=== PATIENT | male | born 1935 | race Caucasian/White ===

== ENCOUNTER 2019-08-04 21:05 | Inpatient (IN) | payer MEDICARE, OTHER, SELFPAY ==
--- NOTE | 2019-08-04 | XR_ITS ---
WS: [id number] LUMBAR SPINE 3 VIEWS HISTORY: 83 years old Male with FALL AP, cone-down lateral, and lateral views lumbar spine comparison 09/19/2018 FINDINGS: Interval L1 superior endplate compression fracture approximately 40% height loss. L2 retrolisthesis o f L3 5.9 mm unchanged. L4-L5 disc space narrowing unchanged. L2-L3 through L5-S1 facet joint arthrosi s reidentified. Right convex lumbar spine curvature reidentified. SI and hip joints anatomic. Diffuse bone demineralization. Aortoiliac artery atherosclerosis without definite aneurysm seen. XR/XR lumbar spine 2-3V* [id number] IMPRESSION: 1. Interval age indeterminant L1 superior endplate compression fracture approxi mately 40% height loss. Correlate clinically. 2. Unchanged L2 degenerative retrolisthesis L3. 3. Continued L4-L3 through L5-S1 facet joint arthrosis and lumbar dextro convex curvature.
[2019-08-04 21:11] VITALS: BP 142/80; PULSE 86; RESP 20; TEMP 37.1; O2SAT 95; BMI 28.3
--- NOTE | 2019-08-04 21:19 | ED_ITS ---
Entered by Kayli Valadez, acting as scribe for Valentin Hollis DO HPI - SOB/Dyspnea General: Chief Complaint: Shortness of Breath/Dyspnea Stated Complaint: SOB Time Seen by Provider: 08/04/19 21:20 Source: patient Mode of arrival: wheelchair Limitations: no limitations History of Present Illness: HPI Narrative: 83 yo m came to the er pov for shortness of breath. Onset was today. Pt states that he has been having trouble breathing today. Pt states that he has sleep apnea. Pt states that he has not had a cough or fever but pt also states that when he lays flat in the bed the breathing becomes more difficult. Pts family states that pt fell last week onto tile and has bruising along his back. MD elicited complaint: shortness of breath Pertinent past history: other (sleep apnea) Timing: constant Severity: mild Exacerbating factors: lying flat Relieving factors: nothing Associated symptoms: Reports orthopnea; Deny abdominal pain, chest pain, cough, dizziness, fever(s), nausea, palpitations or vomiting Related Data: Home oxygen amount: none Review of Systems General: Reports: other (negatve unless marked) Const: Denies: fever Eyes: Denies: change in vision ENMT: Denies: painful swallowing, swelling of lips/tongue or facial/sinus pain Card: Reports: shortness of breath on exertion and shortness of breath when lying down; Denies: chest pain, palpitations, irregular heart rhythm, edema or swelling of feet/ankles Resp: Reports: non-productive cough GI: Denies: abdominal pain, nausea or vomiting : Denies: difficulty urinating Skin/Breast: Denies: rash, itching or redness Neuro: Denies: headache, dizziness, vertigo or confusion Psych: Denies: anxiety PFSH ED PFSH: Statuses (acute, chronic, etc) shown below reflect problem list status as previously entered and may not be historically accurate Medical History (Updated 08/05/19 @ 01:37 by Brandyn Beatty MD) Atrial fibrillation (Acute) CAD (coronary artery disease) (Acute) Frequent falls (Acute) GERD (gastroesophageal reflux disease) (Acute) 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) Hyperlipidemia (Acute) Hypertension (Acute) Ischemic cardiomyopathy (Acute) Peripheral neuropathy (Acute) Surgical History (Updated 08/05/19 @ 01:23 by Brandyn Beatty MD) History of carotid endarterectomy (Acute) Hx of four vessel coronary artery bypass graft (Acute) Hx of heart artery stent (Acute) Family History (Updated 08/05/19 @ 01:23 by Brandyn Beatty MD) Other CAD (coronary artery disease) Social History (Updated 08/05/19 @ 01:24 by Brandyn Beatty MD) Smoking and tobacco status: never smoked Alcohol intake: never Substance/Drug Use: never Physical Exam Const: GENERAL APPEARANCE: well developed ORIENTATION/CONSCIOUSNESS: Yes oriented to person and Yes oriented to place; not oriented to time HENMT: COMMON NORMALS: normocephalic, external ears normal and external nose normal HEAD & SCALP: normocephalic; no scalp tenderness FACE & SINUS: normal facial exam NOSE: external nose normal EXTERNAL EAR: Yes external ears normal THROAT: posterior oropharynx normal Eye: COMMON NORMALS: PERRL, EOMs intact bilaterally and conjunctivae normal EYELID: eyelids normal CONJUNCTIVA: Yes conjunctivae normal PUPIL: Yes PERRL Chest: CHEST: Yes tenderness Resp: COMMON NORMALS: negative for clear to auscultation bilaterally EFFORT & INSPECTION: No tachypneic, No respiratory distress, No retractions, No uses accessory muscles and No tracheal deviation AUSCULTATION: not clear to auscultation bilaterally, no rhonchi, no wheezes and lung sounds not diminished Cardio: COMMON NORMALS: regular rate; negative for regular rhythm RATE: regular rate RHYTHM: abnormal rhythm HEART SOUNDS: no murmurs PERIPHERAL PULSES: radial pulses present GI: INSPECTION: Yes abdominal distension AUSCULTATION: No hyperactive bowel sounds and No hypoactive bowel sounds PALPATION: No guarding and No rigid PERCUSSION: no dullness to percussion and no tympanic to percussion Back/Pelvis: GENERAL BACK: Yes other (3 bruises on the upper thoracic) Neuro: SENSORIUM/ORIENTATION: Yes oriented to person, Yes oriented to place and No oriented to time Course ED course: 83-year-old gentleman presents with significant shortness of breath. He had a fall last week. I do not see definite rib fractures or pneumothorax. He does have an enlarged heart, and pleural effusion on the left. His BNP is elevated. He has an abnormal rhythm, consisting of atrial fibrillation underlying, with a ventricular rhythm likely idioventricular that appears periodically. He never complained of chest pain. He does complain significant shortness of breath. He has a history of CABG surgery. He will be admitted Consultations: Consultation #1: letitia Vital Signs: Vital signs: Vital Signs Temperature 97.6 F 08/05/19 02:00 Pulse Rate 93 08/05/19 02:21 Respiratory Rate 17 08/05/19 02:21 Blood Pressure 103/86 08/05/19 02:21 Pulse Oximetry 95 08/05/19 02:21 MDM - SOB/Dyspnea Lab Data: Labs: Lab Results 08/04/19 08/04/19 08/04/19 Range/Units 21:48 21:48 21:48 WBC 6.3 (4.0-10.0) 10^3/ uL RBC 4.54 (4.1-5.3) 10^6/u L Hgb 13.3 (11.7-16.6) g/dL Hct 41.1 L (42.0-52.0) % MCV 90.5 (80-94) fL MCH 29.3 (28.0-34.0) pg MCHC 32.4 (30.0-36.0) g/dL RDW 14.2 (12.1-15.1) % Plt Count 170 (130-400) 10^3/c mm MPV 9.8 (7.4-10.4) fL Neut % (Auto) 68.2 % Lymph % (Auto) 16.6 % [place] % (Auto) 14.1 % Eos % (Auto) 0.6 % Baso % (Auto) 0.3 % Neut # (Auto) 4.3 (1.8-7.7) 10^3/u L Lymph # (Auto) 1.0 (0.8-4.8) 10^3/u L [place] # (Auto) 0.9 (0.2-0.9) 10^3/u L Eos # (Auto) 0.0 (0.0-0.8) 10^3/u L Baso # (Auto) 0.0 (0.0-0.1) 10^3/u L Nucleated RBC % (a uto) 0 % Nucleated RBCs # 0.0 /100WBC Specimen Type Sample Site ABG pH (7.35-7.45) ABG pCO2 (35-45) mmHg ABG pO2 (80.0-100.0) mmH g ABG HCO3 (22-26) mmol/L ABG Base Excess (-2.0-2.0) mmol/ L Singh Test Hematocrit (42-52) % Hgb O2 Saturation (95-100) % Carboxyhemoglobin (0.4-20.1) %THgb Methemoglobin (0.4-1.5) % Total Hemoglobin (14-18) g/dL O2 Delivery Device FiO2 % Internal Medicine Hospitalist ID Sodium 137 (136-145) mmol/L Potassium 4.0 (3.5-5.1) mmol/L Chloride 96 L (98-107) mmol/L Carbon Dioxide 28 (22-29) mmol/L Anion Gap 17.0 (5-19) BUN 38 H (8-23) mg/dL Creatinine 1.3 H (0.7-1.2) mg/dL Glucose 114 (65-115) mg/dL Lactate (0.5-2.2) mmol/L Calcium 10.2 (8.5-10.5) mg/dL Magnesium (1.7-2.3) mg/dL Total Bilirubin 1.9 H (0.15-1.2) mg/dL AST 21 (0-40) U/L ALT 9 (0-41) U/L Alkaline Phosphata se 178 H (40-130) IU/L Troponin T Baselin e 83 H (0-15) ng/mL Troponin T 120 Min reba (0-15) ng/mL Delta Troponin T (0-10) ABS# NT-Pro-B Natriuret Pep 6584 H (0-450) pg/mL Total Protein 7.4 (6.6-8.7) g/dL Albumin 3.7 (3.5-5.2) g/dL Globulin 3.7 (1.3-4.6) g/dL Influenza Type A A g (Negative) POC Influenza B Ag (Negative) 08/04/19 08/04/19 08/04/19 Range/Units 21:48 21:48 22:09 WBC (4.0-10.0) 10^3/ uL RBC (4.1-5.3) 10^6/u L Hgb (11.7-16.6) g/dL Hct (42.0-52.0) % MCV (80-94) fL MCH (28.0-34.0) pg MCHC (30.0-36.0) g/dL RDW (12.1-15.1) % Plt Count (130-400) 10^3/c mm MPV (7.4-10.4) fL Neut % (Auto) % Lymph % (Auto) % [place] % (Auto) % Eos % (Auto) % Baso % (Auto) % Neut # (Auto) (1.8-7.7) 10^3/u L Lymph # (Auto) (0.8-4.8) 10^3/u L [place] # (Auto) (0.2-0.9) 10^3/u L Eos # (Auto) (0.0-0.8) 10^3/u L Baso # (Auto) (0.0-0.1) 10^3/u L Nucleated RBC % (a uto) % Nucleated RBCs # /100WBC Specimen Type Sample Site ABG pH (7.35-7.45) ABG pCO2 (35-45) mmHg ABG pO2 (80.0-100.0) mmH g ABG HCO3 (22-26) mmol/L ABG Base Excess (-2.0-2.0) mmol/ L Singh Test Hematocrit (42-52) % Hgb O2 Saturation (95-100) % Carboxyhemoglobin (0.4-20.1) %THgb Methemoglobin (0.4-1.5) % Total Hemoglobin (14-18) g/dL O2 Delivery Device FiO2 % Internal Medicine Hospitalist ID Sodium (136-145) mmol/L Potassium (3.5-5.1) mmol/L Chloride (98-107) mmol/L Carbon Dioxide (22-29) mmol/L Anion Gap (5-19) BUN (8-23) mg/dL Creatinine (0.7-1.2) mg/dL Glucose (65-115) mg/dL Lactate 1.5 (0.5-2.2) mmol/L Calcium (8.5-10.5) mg/dL Magnesium 1.9 (1.7-2.3) mg/dL Total Bilirubin (0.15-1.2) mg/dL AST (0-40) U/L ALT (0-41) U/L Alkaline Phosphata se (40-130) IU/L Troponin T Baselin e (0-15) ng/mL Troponin T 120 Min reba (0-15) ng/mL Delta Troponin T (0-10) ABS# NT-Pro-B Natriuret Pep (0-450) pg/mL Total Protein (6.6-8.7) g/dL Albumin (3.5-5.2) g/dL Globulin (1.3-4.6) g/dL Influenza Type A A g Negative (Negative) POC Influenza B Ag Negative (Negative) 08/04/19 08/04/19 Range/Units 22:10 23:48 WBC (4.0-10.0) 10^3/ uL RBC (4.1-5.3) 10^6/u L Hgb (11.7-16.6) g/dL Hct (42.0-52.0) % MCV (80-94) fL MCH (28.0-34.0) pg MCHC (30.0-36.0) g/dL RDW (12.1-15.1) % Plt Count (130-400) 10^3/c mm MPV (7.4-10.4) fL Neut % (Auto) % Lymph % (Auto) % [place] % (Auto) % Eos % (Auto) % Baso % (Auto) % Neut # (Auto) (1.8-7.7) 10^3/u L Lymph # (Auto) (0.8-4.8) 10^3/u L [place] # (Auto) (0.2-0.9) 10^3/u L Eos # (Auto) (0.0-0.8) 10^3/u L Baso # (Auto) (0.0-0.1) 10^3/u L Nucleated RBC % (a uto) % Nucleated RBCs # /100WBC Specimen Type Arterial Sample Site Radial, left ABG pH 7.49 H (7.35-7.45) ABG pCO2 33.6 L (35-45) mmHg ABG pO2 80.3 (80.0-100.0) mmH g ABG HCO3 25.4 (22-26) mmol/L ABG Base Excess 2.5 H (-2.0-2.0) mmol/ L Singh Test Pos Hematocrit 44.5 (42-52) % Hgb O2 Saturation 94.6 L (95-100) % Carboxyhemoglobin 0.9 (0.4-20.1) %THgb Methemoglobin 0.6 (0.4-1.5) % Total Hemoglobin 14.5 (14-18) g/dL O2 Delivery Device None FiO2 21.0 % Internal Medicine Hospitalist ID [email or web address] Sodium (136-145) mmol/L Potassium (3.5-5.1) mmol/L Chloride (98-107) mmol/L Carbon Dioxide (22-29) mmol/L Anion Gap (5-19) BUN (8-23) mg/dL Creatinine (0.7-1.2) mg/dL Glucose (65-115) mg/dL Lactate (0.5-2.2) mmol/L Calcium (8.5-10.5) mg/dL Magnesium (1.7-2.3) mg/dL Total Bilirubin (0.15-1.2) mg/dL AST (0-40) U/L ALT (0-41) U/L Alkaline Phosphata se (40-130) IU/L Troponin T Baselin e (0-15) ng/mL Troponin T 120 Min reba 78.23 H (0-15) ng/mL Delta Troponin T -4.77 L (0-10) ABS# NT-Pro-B Natriuret Pep (0-450) pg/mL Total Protein (6.6-8.7) g/dL Albumin (3.5-5.2) g/dL Globulin (1.3-4.6) g/dL Influenza Type A A g (Negative) POC Influenza B Ag (Negative) Discharge Plan Discharge Admit Provider: Brandyn Beatty Discharge Date/Time: 08/05/19 01:52 Coding Level of Care Code ED Clean Room Assembler for Chg Germania The documentation recorded by the Rory lazaro Stephanie Lyn, accurately reflects the service I personally performed and the decisions made by Bunny rojas Jeremy John, DO Aug 04, 2019 21:05
[2019-08-04 21:24] VITALS: BP 128/74; PULSE 93; RESP 18; O2SAT 97
--- NOTE | 2019-08-04 21:25 | PC.NURSE ---
PATIENT STATES HE HAS BEEN HAVING TROUBLE CATCHING HIS BREATH ALL DAY. PATIENT STATES THAT HE USUALLY WEARS A CPAP TO SLEEP BUT HAS NOT BEEN USING IT LATELY. PATIENT STATES HE HAD PNEUMONIA LAST YEAR.
--- NOTE | 2019-08-04 21:39 | XR_ITS ---
WS: [id number] ONE VIEW CHEST HISTORY: 83 years old Male with sob AP upright chest comparison 08/11/2018 FINDINGS: Interval mild left costophrenic angle blunting. No pneumothorax or right costophrenic angle blunting. Lungs are otherwise clear. Cardiomegaly probably unchanged, accounting for lordotic techni que. Pulmonary vascular markings unremarkable. Thoracic aorta atherosclerosis and CABG changes reiden tified. No subdiaphragmatic free air. Osseous structures intact. XR/XR chest 1V portable [id number] IMPRESSION: Interval small left pleural effusion. Superimposed left basilar atelectasis or pneumonia not excluded. Suggest short-term follow-up PA and lateral chest in 4- 6 weeks, or sooner if clinically indicated.
[2019-08-04 22:02] LABS: Basophils % 0.3 %; Eosinophils % 0.6 %; Hematocrit 41.1 % (42.0-52.0); Hemoglobin 13.3 g/dL (11.7-16.6); Lymphocytes % 16.6 %; Mean Corpuscular HGB Conc 32.4 g/dL (30.0-36.0); Mean Corpuscular Hemoglobin 29.3 pg (28.0-34.0); Mean Corpuscular Volume 90.5 fL (80-94); Mean Platelet Volume 9.8 fL (7.4-10.4); Monocytes # 0.9 10^3/uL (0.2-0.9); Monocytes % 14.1 %; Neutrophils # 4.3 10^3/uL (1.8-7.7); Neutrophils % 68.2 %; Nucleated Red Blood Cells % 0 %; Platelet Count 170 10^3/cmm (130-400); Red Blood Count 4.54 10^6/uL (4.1-5.3); Red Cell Distribution Width 14.2 % (12.1-15.1); White Blood Count 6.3 10^3/uL (4.0-10.0)
[2019-08-04 22:07] VITALS: BP 118/70; PULSE 101; RESP 16; O2SAT 92
[2019-08-04 22:12] VITALS: PULSE 88; RESP 16; O2SAT 93
[2019-08-04] MEDS: ipratropium-albuterol 3 mL Neb INHALATION (22:12)
[2019-08-04 22:22] LABS: ABG PCO2 33.6 mmHg (35-45); ABG PH Result 7.49 (7.35-7.45); Arterial Blood Gas Hematocrit 44.5 % (42-52); Base Excess ABG 2.5 mmol/L (-2.0-2.0); Blood Gas Allen Test Pos; Blood Gas Sample Site Radial, left; Blood Gas Sample Type Arterial; Carboxyhemoglobin 0.9 %THgb (0.4-20.1); HCO3 ABG 25.4 mmol/L (22-26); HGB O2 Sat 94.6 % (95-100); Methemoglobin 0.6 % (0.4-1.5); PO2 ABG 80.3 mmHg (80.0-100.0); Total Hemoglobin 14.5 g/dL (14-18)
[2019-08-04 22:25] LABS: Troponin(5th) Baseline 83 ng/mL (0-15)
[2019-08-04 22:34] LABS: Alanine Aminotransferase 9 U/L (0-41); Albumin Level 3.7 g/dL (3.5-5.2); Alkaline Phosphatase 178 IU/L (40-130); Aspartate Amino Transferase 21 U/L (0-40); Blood Urea Nitrogen 38 mg/dL (8-23); Calcium 10.2 mg/dL (8.5-10.5); Carbon Dioxide 28 mmol/L (22-29); Chloride 96 mmol/L (98-107); Globulin 3.7 g/dL (1.3-4.6); Glucose 114 mg/dL (65-115); NT Pro B Type Natriuretic Pept 6584 pg/mL (0-450); Sodium 137 mmol/L (136-145); Total Bilirubin 1.9 mg/dL (0.15-1.2); Total Protein 7.4 g/dL (6.6-8.7)
[2019-08-04 22:50] LABS: Influenza A by IFA Negative (Negative)
[2019-08-04 22:51] LABS: Influenza B by IFA Negative (Negative)
--- NOTE | 2019-08-04 23:14 | PC.NURSE ---
ED physician at bedside, patient placed on 2L NC
[2019-08-04 23:17] VITALS: BP 115/84; PULSE 95; RESP 17; O2SAT 98
[2019-08-04 23:30] LABS: Magnesium 1.9 mg/dL (1.7-2.3)
[2019-08-04 23:31] LABS: Lactate (Lactic Acid level) 1.5 mmol/L (0.5-2.2)
[2019-08-04] MEDS: FUROsemide 10 mg/mL SDV 10mL 60 MG IVP (23:32)
--- NOTE | 2019-08-04 23:40 | ECG_ITS ---
Measurements Intervals [place] Rate: 89 P: TX: 0 QRS: 116 QRSD: 182 T: -38 QT: 426 QTc: 521 ATRIAL FIBRILLATION RIGHT AXIS DEVIATION [QRS AXIS > 100] INTRAVENTRICULAR CONDUCTION DELAY [130+ ms QRS DURATION] Compared to ECG 08/11/2018 12:34:15 Right-axis deviation now present T-wave abnormality no longer present Possible ischemia no longer present Electronically Signed On 08-04-2019 22:20:05 FAMILY MEDICINE PHYSICIAN by Shay Huff M.D. [email or web address]
[2019-08-05] VITALS (30 sets, daily range): BP systolic 76–140; BP diastolic 38–93; PULSE 60–103; RESP 13–21; TEMP 36.4–37.2; O2SAT 89–98
[2019-08-05 00:20] LABS: Troponin 5 2HR 78.23 ng/mL (0-15)
[2019-08-05 00:22] LABS: Troponin 5 2HR Delta -4.77 ABS# (0-10)
--- NOTE | 2019-08-05 00:48 | CTR_ITS ---
PROCEDURE INFORMATION: Exam: CT Angiography Chest With Contrast Exam date and time: 08/05/2019 1:01 AM Age: 83 years old Clinical indication: Shortness of breath; Prior surgery; Surgery date: 6+ months; Surgery type: Open heart, stents; Additional info: SOB, fall, R/O pe TECHNIQUE: Imaging protocol: Computed tomographic angiography of the chest with intravenous contrast. 3D rendering: MIP and/or 3D reconstructed images were created by the technologist. Total DLP: 655.35 mGy-cm Radiation optimization: All CT scans at this facility use at least one of these dose optimization techniques: automated exposure control; mA and/or kV adjustment per patient size (includes targeted exams where dose is matched to clinical indication); or iterative reconstruction. Contrast material: VISI; Contrast volume: 95 ml; Contrast route: 20G; COMPARISON: CT Chest/Abdomen/Pelvis w IV* 09/18/2014 7:07 PM FINDINGS: Pulmonary arteries: There is no pulmonary embolus. The main pulmonary artery trunk is enlarged measuring 5.2 cm compared to the ascending thoracic aorta which measures 3.1 cm compatible probable pulmonary arterial hypertension. There is decreased opacification of the left lower lobe pulmonary artery branches compared to the right but there is just a gradual diminishing of the enhancement rather than a filling defect joint abrupt cut off such is a pulmonary embolus. This is felt to be due to the phase of the scan in contrast enhancement since most of the contrast is identified in the right heart, superior vena cava and left upper extremity (early in the bolus). Probable right heart failure is noted with reflux of contrast into the hepatic veins and inferior vena cava. Aorta: Unremarkable. No aortic aneurysm. No aortic dissection. Lungs: Nonspecific mild bibasilar consolidation is present, consistent with atelectasis, edema, or pneumonia. Pleural space: There is a moderate size left pleural effusion. There is left basilar compressive atelectasis from the pleural effusion. Heart: Sternotomy wires and mediastinal surgical clips are present, consistent with previous coronary arterial bypass grafting. The heart is enlarged. Mediastinum: A small hiatal hernia is present. Liver: The liver has a nodular contour and there is relative hypertrophy of the caudate lobe, consistent with cirrhosis. Adrenals: Diffuse nodular thickening of both adrenal glands is identified compatible probable hyperplasia. Intraperitoneal space: There is a large amount of ascites. Lymph nodes: Unremarkable. No enlarged lymph nodes. Bones/joints: Osteopenia and moderate degenerative changes in the spine are noted. There is an anterior wedging fracture of L1 that appears new or subacute. No retropulsed bone. No involvement of the pedicles or lamina. No additional acute bony fracture. Soft tissues: Unremarkable. CT/CT angio chest PE protcl [id number] IMPRESSION: 1. There is no pulmonary embolus. Note is made that the suboptimal enhancement of the left lower lobe pulmonary artery branches is compatible with the phase of injection and right heart failure as above. 2. The main pulmonary artery trunk is enlarged measuring 5.2 cm compared to the ascending thoracic aorta which measures 3.1 cm compatible probable pulmonary arterial hypertension. Probable pulmonary arterial hypertension. 3. Nonspecific mild bibasilar consolidation is present, consistent with atelectasis, edema, or pneumonia. There is a left pleural effusion. 4. New or subacute anterior wedging fracture of L1 without retropulsed bone. Radiation Dose CTDIVOL = (mGy): DLP = 655.35 (mGy-cm)
--- NOTE | 2019-08-05 00:52 | PC.NURSE ---
hospitalist in room
--- NOTE | 2019-08-05 00:57 | PC.NURSE ---
patient gowned by nurse
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
--- NOTE | 2019-08-05 01:13 | PC.NURSE ---
patient to CT
[2019-08-05] MEDS: iodixanol 320 mg/mL 100mL Btl IV (01:22)
[2019-08-05] MEDS: morphine 4 mg/mL SDV 1 mL 2 MG IVP (01:43)
--- NOTE | 2019-08-05 02:12 | USCV_ITS ---
Dimitri Alexander Age: 83 Gender: M : 1935 Exam Date: 08/05/2019 12:55 Ordering Phys: Brandyn Beatty MD Technologist: Manisha Red [place]am [place] [facility] [place]: SOB BP: 140 / 55 HR: 82 Rhythm: Atrial fibrillation Technical Quality: Technically difficult study MEASUREMENTS (Male / Female) Normal Values 2D ECHO LV Diastolic Diameter PLAX 5.1 cm 4.2 - 5.9 / 3.9 - 5.3 cm LV Systolic Diameter PLAX 4.6 cm LV Chamber Size 4.7 cm IVS Diastolic Thickness 1.1 cm 0.6 - 1.0 / 0.6 - 0.9 cm IVS Systolic Thickness 1.3 cm LVPW Diastolic Thickness 1.2 cm 0.6 - 1.0 / 0.6 - 0.9 cm LVPW Systolic Thickness 1.3 cm RV Chamber Size 4.1 cm LVOT Diameter 1.9 cm LV Ejection Fraction 2D Teich 20.6 % LA Diameter 5.0 cm LA Width 3.7 cm LA Height 6.0 cm RA Width 3.4 cm RA Height 5.6 cm Aorta at Sinotubular Diameter 2.3 cm M-MODE LV Diastolic Diameter MM 5.4 cm 4.2 - 5.9 / 3.9 - 5.3 cm LV Systolic Diameter MM 5.0 cm LV Ejection Fraction MM Teich 17.7 % IVS Diastolic Thickness MM 1.7 cm 0.6 - 1.0 / 0.6 - 0.9 cm IVS Systolic Thickness MM 1.4 cm LVPW Diastolic Thickness MM 1.7 cm 0.6 - 1.0 / 0.6 - 0.9 cm LVPW Systolic Thickness MM 1.9 cm Aortic Annulus Diameter 3.3 cm LA Ao Ratio MM 1.5 MV E Point Septal Separation 1.7 cm DOPPLER AV Peak Velocity 137.0 cm/s LVOT Peak Velocity 107.0 cm/s AV Area Cont Eq vti 2.2 cm squared AV Area Cont Eq pk 2.3 cm squared MV Area PHT 5.4 cm squared MV E' Velocity 9.0 cm/s Mitral E to MV E' Ratio 16.8 Mitral E to LV E' Lateral Ratio 10.8 Mitral E to LV E' Septal Ratio 38.1 TR Peak Velocity 306.0 cm/s TR Peak Gradient 37.5 mmHg TR Mean Velocity 195.2 cm/s TR Mean Gradient 16.0 mmHg TR Velocity Time Integral 78.9 cm TV Peak E Velocity 86.0 cm/s Right Atrial Pressure 15.0 mmHg Pulmonary Artery Systolic Pressu 52.5 mmHg FINDINGS Left Ventricle Moderately increased left ventricular cavity size. Severely decreased left ventricular systolic function. Global- hypokinesis with regional septal and anterior wall akinesis.left ventricular ejection fraction is estimated at 20 %. In the presence of atrial fibrillation diastolic filling function cannot be assessed accurately however it appeared to be higher filling pressure. Right Ventricle Moderately increased right ventricular size. Moderately decreased right ventricular systolic function. Moderate pulmonary hypertension, RVSP 52.5 mmHg. Right Atrium The right atrium is normal in size. Left Atrium Mildly increased left atrial size. Mitral Valve Moderately thickened mitral valve. No mitral valve stenosis. Mild mitral valve regurgitation. Aortic Valve Moderate aortic valve calcification. No aortic valve stenosis. No aortic valve regurgitation. Tricuspid Valve Severe tricuspid valve regurgitation. Pulmonic Valve Structurally normal pulmonic valve without significant stenosis. There is no pulmonic regurgitation. Pericardium Normal pericardium without effusion. Aorta Normal ascending aorta dimension. CONCLUSIONS 1-Moderately increased left ventricular cavity size. Severely decreased left ventricular systolic function. Global- hypokinesis with regional septal and anterior wall akinesis.left ventricular ejection fraction is estimated at 20 %. In the presence of atrial fibrillation diastolic filling function cannot be assessed accurately however it appeared to be higher filling pressure. 2-Moderately increased right ventricular size. Moderately decreased right ventricular systolic function. Moderate pulmonary hypertension, RVSP 52.5 mmHg. 3-Moderately thickened mitral valve. No mitral valve stenosis. Mild mitral valve regurgitation. 4-Moderate aortic valve calcification. No aortic valve stenosis. No aortic valve regurgitation. 5-Severe tricuspid valve regurgitation. 6-There is no pericardial effusion. 7-Right atrial pressure is around 20 mm of mercury. 8-When compared to the prior echocardiogram dated 08/06/2018 there is severely depressed left ventricular ejection fraction of 20 % now has dropped from moderately depressed 40% in the past. Memory hypertension is worsened from normal 72 mmHg to 52 mmHg now. Shay Huff MD (Electronically Signed) Final Date: 05 August 2019 21:27 S
--- NOTE | 2019-08-05 03:17 | PC.NURSE ---
Addendum entered by Judith Lindsey RN 08/05/19 03:19: Strips placed in chart. Original Note: Patient on telemetry from ED. Noted patient to have what appears to be runs of vtach at times. Patient is asymptomatic aside from shortness of breath. Informed Dr Beatty of telemetry concerns. replied that he is aware of EKG changes. No orders received at this time. Will continue to monitor.
[2019-08-05 05:19] LABS: Basophils % 0.3 %; Eosinophils # 0.1 10^3/uL (0.0-0.8); Eosinophils % 0.8 %; Hemoglobin 14.1 g/dL (11.7-16.6); Lymphocytes # 1.1 10^3/uL (0.8-4.8); Lymphocytes % 16.7 %; Mean Corpuscular HGB Conc 32.8 g/dL (30.0-36.0); Mean Corpuscular Hemoglobin 30.5 pg (28.0-34.0); Mean Corpuscular Volume 93.1 fL (80-94); Mean Platelet Volume 10.3 fL (7.4-10.4); Monocytes % 15.1 %; Neutrophils # 4.4 10^3/uL (1.8-7.7); Neutrophils % 66.6 %; Nucleated Red Blood Cells % 0 %; Platelet Count 181 10^3/cmm (130-400); Red Blood Count 4.62 10^6/uL (4.1-5.3); Red Cell Distribution Width 14.3 % (12.1-15.1); White Blood Count 6.5 10^3/uL (4.0-10.0)
[2019-08-05] MEDS: enoxaparin 40 mg/0.4 mL Syringe SUBCUT (05:21)
[2019-08-05] MEDS: FUROsemide 10 mg/mL SDV 4mL 40 MG IVP ×2 (05:21→16:03)
[2019-08-05] MEDS: morphine 4 mg/mL SDV 1 mL 1 MG IVP (05:22)
[2019-08-05 05:30] LABS: Estmated Average Glucose 174; Hemoglobin A1C 7.7 % (4.0-6.0)
[2019-08-05 05:41] LABS: Alanine Aminotransferase 9 U/L (0-41); Albumin Level 3.6 g/dL (3.5-5.2); Alkaline Phosphatase 177 IU/L (40-130); Anion Gap 20.5 (5-19); Aspartate Amino Transferase 21 U/L (0-40); Blood Urea Nitrogen 36 mg/dL (8-23); Calcium 10.1 mg/dL (8.5-10.5); Carbon Dioxide 26 mmol/L (22-29); Chloride 93 mmol/L (98-107); Glucose 104 mg/dL (65-115); Potassium 3.5 mmol/L (3.5-5.1); Sodium 136 mmol/L (136-145); Total Bilirubin 1.8 mg/dL (0.15-1.2); Total Protein 7.6 g/dL (6.6-8.7)
[2019-08-05 05:42] LABS: Phosphorus 4.1 mg/dL (2.5-4.5)
[2019-08-05 05:44] LABS: Chol HDL Ratio 3.78 mg/dL (1.0-5.00); Cholesterol 87 mg/dL (0-200); HDL Cholesterol 23 mg/dL (60-100); LDL Cholesterol Calculated 43 mg/dL (50-129); LDL HDL Ratio 1.87 RATIO (0.00-3.22); Thyroid Stimulating Hormone 3.02 uIU/mL (0.27-4.20); Triglycerides 105 mg/dL (0-150)
[2019-08-05 07:13] LABS: Glucose Point of Care 111 mg/dL (70-110)
--- NOTE | 2019-08-05 07:43 | PM.PN ---
Subjective Subjective: Interval history: Chart reviewed, patient seen and examined, son at bedside, he is resting in bed though does not seem comfortable, complains of pain around his tailbone secondary to recent fall that he had. Medications: Reviewed: Yes Medication Review Details: Current Medications Generic Name Dose Route Start Last Admin Trade Name Freq PRN Reason Stop Dose Admin Albuterol/Ipratrop ium 3 ml 08/05/19 04:00 08/05/19 04:10 Duoneb INHALATION Not Given Q4H.RESPIRATORY S CH Enoxaparin Sodium 40 mg 08/05/19 02:12 08/05/19 05:21 Lovenox SUBCUT 40 mg Q24H EARL Administration Furosemide 40 mg 08/05/19 02:12 08/05/19 05:21 Lasix IVP 40 mg Q12H EARL Administration Morphine Sulfate 1 mg 08/05/19 04:33 08/05/19 05:22 Morphine IVP 1 mg Q4H PRN Administration SEVERE PAIN Vitals/I&O/Wt Last Vital Signs Temp 97.8 F 08/05/19 07:17 Pulse 65 08/05/19 07:17 Resp 13 08/05/19 07:17 BP 140/55 08/05/19 07:17 Pulse Ox 92 08/05/19 07:17 08/04/19 08/05/19 08/05/19 22:59 06:59 14:59 Intake Total 150 / 150 Output Total 650 / 650 Balance -500 / -500 Weight last 48 hrs Weight 77.111 kg Physical Exam Const: COMMON NORMALS: no apparent distress and oriented x3 GENERAL APPEARANCE: cooperative and frail appearing; not comfortable ORIENTATION/CONSCIOUSNESS: Yes awake HENMT: COMMON NORMALS: normocephalic, head/scalp atraumatic, hearing grossly normal bilaterally and moist oral mucous membranes HEAD & SCALP: normocephalic and atraumatic Eye: COMMON NORMALS: PERRL, EOMs intact bilaterally and conjunctivae normal CONJUNCTIVA: Yes conjunctivae normal PUPIL: Yes PERRL Neck/C-Spine: COMMON NORMALS: full ROM GENERAL: Yes normal visual inspection and Yes trachea midline Resp: COMMON NORMALS: normal respiratory effort, no retractions, no use of accessory muscles and clear to auscultation bilaterally EFFORT & INSPECTION: Yes able to speak in complete sentences, Yes symmetric chest movement and No tachypneic AUSCULTATION: clear to auscultation bilaterally Cardio: COMMON NORMALS: regular rate, regular rhythm, S1 normal heart sound, S2 normal heart sound and no murmurs RATE: regular rate RHYTHM: regular rhythm HEART SOUNDS: S1 normal and S2 normal GI: COMMON NORMALS: normal to inspection, nondistended, normoactive bowel sounds, soft to palpation and non-tender PALPATION: Yes soft Back/Pelvis: COMMON NORMALS: thoracic and lumbar spine normal to inspection Extremity: COMMON NORMALS: normal to inspection, full ROM and no clubbing, cyanosis or edema; negative for no pedal edema Neuro: COMMON NORMALS: oriented x3, moves all extremities, no focal motor deficits and no sensory deficits noted Psych: COMMON NORMALS: mental status grossly normal, thought process normal, cooperative, affect normal and speech normal SPEECH: Yes normal speech THOUGHT PROCESS: normal thought process Skin: COMMON NORMALS: no rashes or lesions noted, no jaundice, no petechiae and no mottling GENERAL SKIN EXAM: no rashes or lesions noted Data : 08/05/19 04:10 08/05/19 04:10 Micro: Microbiology 08/04/19 21:52 Blood Culture - Preliminary Blood SPECIMEN COLLECTED 08/04/19 21:48 Blood Culture - Preliminary Blood SPECIMEN COLLECTED A&P Assessment and plan (1) Acute respiratory failure with hypoxia: -secondary to acute combined systolic and diastolic CHF exacerbation as evidenced by SOB, LE edema, elevated BNP (6584) -last Echo done in 2014 with EF=40%, G1DD, noted RWMA; repeat Echo ordered -CXR-small L pleural effusion, CTA negative for PE, showing evidence of L pleural effusion, possible pulmonary HTN -supplemental oxygen as needed; monitor respiratory status. Not oxygen dependent at baseline -continue IV diuresis with Bumex, PO metolazone; received IV Lasix in ED -telemetry monitoring -daily weights, monitor Is & Os -monitor lytes and renal function with diuresis -cardiac diabetic diet as tolerated -VSS: continue to monitor -ABG noted, no hypoxia Status: Acute Code(s): J96.01 - Acute respiratory failure with hypoxia (2) Frequent falls: -recurrent falls with most recent fall about 1 week ago -has hx of Nayeli Toure? syndrome, peripheral neuropathy -Follow-up L-spine x-ray; evidence of new or subacute wedging fracture of L1 on CTA -Pain control as needed, strict fall precautions -PT/OT evaluations -ambulates with walker, WC Status: Acute Code(s): R29.6 - Repeated falls Additional A&P Information -hx of atrial fibrillation; on AC with full dose ASA, no further anticoagulation due to fall risk; HR controlled -HTN -NIDDM type II; A1c-7.7; Accuchecks, ISS, hypoglycemia precautions -hx of CAD s/p stenting, CABG with redo in 1996 -hx of ischemic cardiomyopathy; f/u with Dr. Refugio Gracia carotid stenosis s/p CEA with angioplasty -Hyperlipidemia -continue meds as ordered -GI ppx with PPI -DVT ppx not needed as on full dose ASA -Dispo: home -Code status: LIMITED, no CPR or intubation Attestations Medical Necessity Statement*: Patient requires hospitalization for continued IV diuresis as part of management of acute CHF exacerbation. Time Spent in Patient Care: Greater than 35 minutes (>than 50% of time spent in counselling and/or direct pt care on unit). Coding Level of Care Code Acute Manager [employer] for [employer] Exam Problem Focused Diagnoses Acute respiratory failure with hypoxia J96.01 Frequent falls R29.6
[2019-08-05] MEDS: ipratropium-albuterol 3 mL Neb INHALATION ×3 (08:35→15:04)
[2019-08-05] MEDS: losartan 50 mg Tablet PO ×2 (09:15→18:10)
[2019-08-05] MEDS: aspirin 325 mg Tablet PO (09:31)
[2019-08-05] MEDS: carvedilol 6.25 mg Tablet PO ×2 (09:33→18:09)
[2019-08-05] MEDS: duloxetine 20 mg Capsule PO ×2 (09:34→18:09)
[2019-08-05] MEDS: cyanocobalamin 1,000 mcg Tablet 500 MCG PO (09:34)
[2019-08-05] MEDS: ferrous sulfate EC 325 mg Tablet PO (09:35)
[2019-08-05] MEDS: pantoprazole DR 40 mg Tablet PO (09:36)
[2019-08-05] MEDS: pregabalin 75 mg Capsule PO ×2 (09:36→18:09)
[2019-08-05] MEDS: metOLazone 5 MG Tablet PO (09:37)
--- NOTE | 2019-08-05 09:47 | PC.CHAP ---
Pastoral Care Encounter/Spiritual Assessment Type of Contact [] Declined tailor women's garment alteration visit [] Patient/Family/Request visit [] Outpatient visit [] Follow-up visit [] Physician referral [] Code/Alert [X] Routine visit [] Staff referral [] Actively dying [] Patient sleeping [] Family support [] [] Out of room [] Palliative care [] [] Receiving care in room [] Pre-surgical visit [] Trauma [] Long length of stay [] ICU visit [] Other: Relational/Emotional Strength [] Patient feels connected with others/family/visitors/staff [] Distress [] Loneliness/isolation [] Abandonment Spirituality of Patient [] Person of Kathleen [] Attends Hinduism of their Kathleen [] Believes in Prayer [] Reads Bible or Islam materials [] There are Spiritual issues to be addressed Meat Cutting Teacher Interventions [] Prayer [X] Active listening [X] Non-anxious presence [] Spiritual/emotional support [] Crisis/trauma care [] Spiritual counseling [] Bereavement support [] Provided bereavement packet [] Provided Bible/devotional materials [] Provided toy/stuffed animal, coloring book to patient or family member [] Provided Communion [] Anointing/[place] [] Salvation [] Completed spiritual assessment [] Other: Impact on Illness or Injury [] Angry [] Fearful [] Anxious [] Often cries [] Exhaustion [] Unable to work [] Unable to attend episcopalian [] Unable to walk/stand [] Unable to read [] Unable to drive [] Unable to eat/drink [] Unable to sleep [] Unable to be with family [] Patient intubated [] Other: Summary Son present Time spent with patient
[2019-08-05] MEDS: atorvastatin 40 mg Tablet 10 MG PO (09:55)
[2019-08-05] MEDS: bumetanide 0.25 mg/mL SDV 10 mL 1 MG IV (09:56)
[2019-08-05 11:34] LABS: Glucose Point of Care 147 mg/dL (70-110)
[2019-08-05 16:00] LABS: Glucose Point of Care 100 mg/dL (70-110)
[2019-08-05 20:52] LABS: ABG PCO2 49.3 mmHg (35-45); ABG PH Result 7.41 (7.35-7.45); Alveolar-Arterial Oxygen Gradi 19.6 mmHg (5-10); Arterial Blood Gas Hematocrit 39.6 % (42-52); Blood Gas Allen Test Pos; Blood Gas Sample Site Radial, right; Blood Gas Sample Type Arterial; Carboxyhemoglobin 0.7 %THgb (0.4-20.1); HCO3 ABG 30.8 mmol/L (22-26); Ionized Calcium Level - ABG 1.2 mmol/L (1.1-1.4); Methemoglobin 0.4 % (0.4-1.5); Oxygen Device NC; Oxygen Saturation ABG 93.1; Potassium Level - ABG 3.4 mmol/L (3.5-5.0); Total Hemoglobin 12.9 g/dL (14-18)
--- NOTE | 2019-08-05 20:54 | XRR_ITS ---
PROCEDURE INFORMATION: Exam: XR Chest, 1 View Exam date and time: 08/05/2019 8:57 PM Age: 83 years old Clinical indication: Dyspnea; Prior surgery; Surgery date: 6+ months; Additional info: Change in condition TECHNIQUE: Imaging protocol: XR of the chest Views: 1 view. COMPARISON: CR XR chest 1V portable [id number] 08/04/2019 9:56 PM FINDINGS: Lungs: Poor inspiratory effort with some crowding of pulmonary markings and possible accentuation of the apparent heart size. Pleural space: Stable [id number] left pleural fluid collection. Heart/Mediastinum: Stable CABG procedure. Bones/joints: Unremarkable. XR/XR chest 1V portable [id number] IMPRESSION: Stable [id number] left pleural fluid collection.
--- NOTE | 2019-08-05 21:01 | P.CONIM_ITS ---
Providers/Reason For Consult Consulting Physican/Specialty*: Cardiology Reason for Consult*: Hypotension Respiratory failure Attending Physician: Jazmin Johnson MD Primary Care Provider: Lee Chávez DO History of Present Illness History of Present Illness Dimitri Alexander is a 83 year old male Past medical history significant for ischemic cardiomyopathy with moderately depressed ejection fraction,History of chronic atrial fibrillation,Obesity, history of Coronary artery bypass surgery, obesity, systolic heart failure presented with worsening of shortness of breath PND orthopnea and dry cough. He was ruled out for pulmonary embolism and is getting treated for heart failure exacerbation. His BNP was and 6000. Today initially he felt better however telemetry was consistent with aberrant conduction runs of atrial fibrillation with nonsustained short VT's as well. Evening shift nurse found him to be discoherent Upon which his blood pressure was checked He was hypotensive with systolic blood pressure in 70s. He was given 500 LR after his blood pressure improved to 101 systolic by manual. ABG was consistent with respiratory Acidosis. He was moved to unit.Today echocardiogram was consistent with severely depressed LV function and moderate to severe one hypertension. He has significant abdominal distention more consistent with ascites. I saw the patient again in the unit. His family is by bedside. Patient is DNR/DNI and would like to do on medical treatment and comfort measure. Review of Systems General: Reports: other (negatve unless marked) Const: Denies: fever, chills, fatigue or malaise Eyes: Denies: change in vision or blurry vision ENMT: Denies: painful swallowing, swelling of lips/tongue, nasal congestion or facial/sinus pain Card: Reports: shortness of breath on exertion, shortness of breath when lying down and bluish discoloration of hands/feet; Denies: chest pain, palpitations, irregular heart rhythm, edema, swelling of feet/ankles, syncope or pre-syncope Resp: Reports: shortness of breath and non-productive cough; Denies: productive cough or wheezing GI: Denies: abdominal pain, nausea, vomiting, vomiting blood, diarrhea, constipation, blood in stool or black tarry stool : Denies: flank pain, difficulty urinating, painful urination or urinary frequency Musc: Denies: neck pain or back pain Skin/Breast: Denies: rash, itching or redness Neuro: Denies: headache, dizziness, vertigo or confusion Psych: Denies: anxiety or depression Endo: Denies: excessive urination or excessive thirst Meds/Allergies Home Medications and Allergies Home Medications Medication Instructions Recorded Confirmed Type aspirin 325 mg PO DAILY 08/05/19 08/05/19 History atorvastatin 20 mg PO DAILY 08/05/19 08/05/19 History carvedilol 12.5 mg PO DAILY 08/05/19 08/05/19 History clopidogrel 75 mg PO DAILY 08/05/19 08/05/19 History cyclobenzaprine 10 mg PO TID 08/05/19 08/05/19 History duloxetine 20 mg PO BID 08/05/19 08/05/19 History furosemide 40 mg PO BID 08/05/19 08/05/19 History glipizide 5 mg PO DAILY 08/05/19 08/05/19 History hydrocodone-acetaminophen 1 tab PO Q6H PRN 08/05/19 08/05/19 History loratadine 10 mg PO DAILY 08/05/19 08/05/19 History metaxalone 800 mg PO QID 08/05/19 08/05/19 History metolazone 2.5 mg PO DAILY 08/05/19 08/05/19 History omeprazole 20 mg PO DAILY 08/05/19 08/05/19 History pregabalin [Lyrica] 75 mg PO BID 08/05/19 08/05/19 History Allergies Allergy/AdvReac Type Severity Reaction Status Date / Time testosterone Allergy blisters Verified 07/31/19 19:04 Current Medications Current Medications Generic Name Dose Route Start Last Admin Trade Name Freq PRN Reason Stop Dose Admin Albuterol/Ipratropium 3 ml 08/05/19 04:00 08/05/19 15:04 Duoneb INHALATION 3 ml Q4H.RESPIRATORY EARL Administration Aspirin 325 mg 08/05/19 09:00 08/05/19 09:31 Aspirin PO 325 mg DAILY EARL Administration Atorvastatin Calcium 10 mg 08/05/19 09:00 08/05/19 09:55 Lipitor PO 10 mg DAILY EARL Administration Bumetanide 1 mg 08/05/19 09:00 08/05/19 09:56 Bumex IV 1 mg Q12H EARL Administration Carvedilol 6.25 mg 08/05/19 09:00 08/05/19 18:09 Coreg PO 6.25 mg BID EARL Administration Cyanocobalamin 500 mcg 08/05/19 09:00 08/05/19 09:34 Vitamin B-12 PO 500 mcg DAILY EARL Administration Enoxaparin Sodium 40 mg 08/05/19 02:12 08/05/19 05:21 Lovenox SUBCUT 40 mg Q24H EARL Administration Ferrous Sulfate 325 mg 08/05/19 09:00 08/05/19 09:35 Ferrous Sulfate PO 325 mg DAILY EARL Administration Furosemide 40 mg 08/05/19 02:12 08/05/19 16:03 Lasix IVP 40 mg Q12H EARL Administration Insulin Aspart 0 unit 08/05/19 08:00 08/05/19 18:14 Novolog SUBCUT 4 unit TIDWM EARL Administration Protocol Losartan Potassium 50 mg 08/05/19 08:00 08/05/19 18:10 Cozaar PO 50 mg BIDWM EARL Administration Metolazone 5 mg 08/05/19 09:00 08/05/19 09:37 Zaroxolyn PO 5 mg DAILY EARL Administration Morphine Sulfate 1 mg 08/05/19 04:33 08/05/19 05:22 Morphine IVP 1 mg Q4H PRN Administration SEVERE PAIN Pantoprazole Sodium 40 mg 08/05/19 09:00 08/05/19 09:36 Protonix PO 40 mg DAILY EARL Administration Additional Medication Information Current Medications Generic Name Dose Route Start Last Admin Trade Name Freq PRN Reason Stop Dose Admin Albuterol/Ipratropium 3 ml 08/05/19 04:00 08/05/19 04:10 Duoneb INHALATION Not Given Q4H.RESPIRATORY EARL Enoxaparin Sodium 40 mg 08/05/19 02:12 08/05/19 05:21 Lovenox SUBCUT 40 mg Q24H EARL Administration Furosemide 40 mg 08/05/19 02:12 08/05/19 05:21 Lasix IVP 40 mg Q12H EARL Administration Morphine Sulfate 1 mg 08/05/19 04:33 08/05/19 05:22 Morphine IVP 1 mg Q4H PRN Administration SEVERE PAIN PFSH Acute PFSH: Statuses (acute, chronic, etc) shown below reflect problem list status as previously entered and may not be historically accurate Medical History (Updated 08/06/19 @ 18:57 by Shay Huff MD) Abdominal aortic aneurysm (Acute) Atrial fibrillation (Acute) CAD (coronary artery disease) (Acute) Frequent falls (Acute) GERD (gastroesophageal reflux disease) (Acute) 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) Hyperlipidemia (Acute) Hypertension (Acute) Ischemic cardiomyopathy (Acute) Peripheral neuropathy (Acute) Pulmonary hypertension (Acute) Surgical History History of carotid endarterectomy (Acute) Hx of four vessel coronary artery bypass graft (Acute) Hx of heart artery stent (Acute) Family History Other CAD (coronary artery disease) Social History Smoking and tobacco status: never smoked Alcohol intake: never Substance/Drug Use: never Vitals/I&O/Wt Last Vital Signs Temp 97.8 F 08/05/19 15:17 Pulse 60 08/05/19 15:17 Resp 19 H 08/05/19 15:17 BP 101/58 08/05/19 18:10 Pulse Ox 96 08/05/19 15:17 08/05/19 08/05/19 08/05/19 06:59 14:59 22:59 Intake Total 150 / 150 360 / 360 240 / 600 Output Total 650 / 650 650 / 650 350 / 1000 Balance -500 / -500 -290 / -290 -110 / -400 Weight last 48 hrs Weight 170 lb Physical Exam 2 Narrative: EXAM NARRATIVE: GENERAL: Patient is mildly distressed but oriented. HEENT: No cyanosis. No icterus. No pallor. HEART: Irregularly irregular S1 and S2. No murmur, rub or gallop. LUNGS: Right mild inspiratory crackles ABDOMEN: Moderately distended positive bowel sounds with shifting dullness CENTRAL NERVOUS SYSTEM: Grossly nonfocal. EXTREMITIES: Lower extremities without edema bilaterally. Data Micro: Micro: Microbiology 08/04/19 21:52 Blood Culture - Pr eliminary Blood SPECIMEN [facility] 08/04/19 21:48 Blood Culture - Pr eliminary Blood SPECIMEN [facility] A&P Assessment and plan (1) Acute respiratory failure with hypoxia: Most likely secondary to heart failure and worsening of pulmonary hypertension. Patient was diuresed after which he became compensated but drop his blood pressure for which some IV fluid was given which improved his blood pressure. At this point we will hold diuretics. Patient has distended abdominal girth most likely ascites. It is also pushing his lungs and making him short of breath. Status: Acute Code(s): J96.01 - Acute respiratory failure with hypoxia (2) Pulmonary hypertension: Worsening of pulmonary hypertension which is one of the major cause for respiratory failure. Once blood pressure improves we may will add sildenafil. For now continue oxygen. Status: Acute Code(s): I27.20 - Pulmonary hypertension, unspecified (3) Atrial fibrillation: Rate controlled. Continue medicine. Hold carvedilol for blood pressure issues Status: Acute Qualifiers: Atrial fibrillation type: other persistent Qualified Code(s): I48.19 - Other persistent atrial fibrillation Code(s): I48.91 - Unspecified atrial fibrillation (4) Ischemic cardiomyopathy: Patient has severely depressed LV function by recent echo. Ejection fraction has dropped from moderately depressed 40% to 20% now. He Has history of coronary artery bypass surgery For many years ago. He is DNR/DNI would not like to pursue any intervention and not that is recommended at the moment. We will continue to manage him medically.Abnormal cardiac markers are most likely type II and due to pulmonary hypertension and Congestive heart failure. Status: Acute Code(s): I25.5 - Ischemic cardiomyopathy (5) Abdominal aortic aneurysm: History of abdominal aneurysm. We will recheck with abdominal ultrasound in the morning. Status: Acute Code(s): I71.4 - Abdominal aortic aneurysm, without rupture (6) Hypotension: Patient was given IV fluid at this point I will hold IV fluid if required we will use pressors. I will hold carvedilol and diuretics. Status: Acute Code(s): I95.9 - Hypotension, unspecified (7) Abdominal distention: Most likely ascites secondary to pulmonary hypertension right Heart failure and Congestive heart failure. Abdominal ultrasound will be obtained further plan will be advised. Status: Acute Code(s): R14.0 - Abdominal distension (gaseous) Consult Attestations Medical Necessity Statement: Patient requires continuation hospitalization ICU for above defined problem Coding Level of Care Code New Pt Acute Import Coordination And Production Head for [facility] Fwd Patient Type New History Detailed Exam Detailed Medical Decision Making High Complexity Diagnoses Acute respiratory failure with hypoxia J96.01 Pulmonary hypertension I27.20 Atrial fibrillation I48.19 Atrial fibrillation type: other persistent Ischemic cardiomyopathy I25.5 Abdominal aortic aneurysm I71.4 Hypotension I95.9 Abdominal distention R14.0
[2019-08-05] MEDS: lactated ringers 1,000 ML 999 ML IV (21:22)
[2019-08-05 21:28] LABS: Basophils % 0.7 %; Eosinophils # 0.2 10^3/uL (0.0-0.8); Eosinophils % 3.6 %; Hematocrit 39.2 % (42.0-52.0); Hemoglobin 12.5 g/dL (11.7-16.6); Lymphocytes # 0.9 10^3/uL (0.8-4.8); Lymphocytes % 14.3 %; Mean Corpuscular HGB Conc 31.9 g/dL (30.0-36.0); Mean Corpuscular Hemoglobin 29.7 pg (28.0-34.0); Mean Corpuscular Volume 93.1 fL (80-94); Mean Platelet Volume 9.7 fL (7.4-10.4); Monocytes % 16.6 %; Neutrophils % 64.5 %; Nucleated Red Blood Cells % 0 %; Platelet Count 157 10^3/cmm (130-400); Red Blood Count 4.21 10^6/uL (4.1-5.3); Red Cell Distribution Width 14.3 % (12.1-15.1); White Blood Count 6.1 10^3/uL (4.0-10.0)
[2019-08-05 21:30] LABS: Glucose Point of Care 135 mg/dL (70-110)
[2019-08-05 21:50] LABS: Alanine Aminotransferase 8 U/L (0-41); Albumin Level 3.1 g/dL (3.5-5.2); Alkaline Phosphatase 170 IU/L (40-130); Anion Gap 16.3 (5-19); Aspartate Amino Transferase 19 U/L (0-40); Blood Urea Nitrogen 39 mg/dL (8-23); Calcium 9.9 mg/dL (8.5-10.5); Carbon Dioxide 29 mmol/L (22-29); Chloride 95 mmol/L (98-107); Globulin 3.7 g/dL (1.3-4.6); Glucose 123 mg/dL (65-115); Magnesium 1.9 mg/dL (1.7-2.3); Phosphorus 4.5 mg/dL (2.5-4.5); Potassium 3.3 mmol/L (3.5-5.1); Sodium 137 mmol/L (136-145); Total Bilirubin 1.5 mg/dL (0.15-1.2); Total Protein 6.8 g/dL (6.6-8.7)
[2019-08-05 21:52] LABS: Lactic Acid level (Lactate) 2.5 mmol/L (0.5-2.2)
[2019-08-05 22:57] LABS: Troponin T (5th) Once 111 ng/mL (0-15)
[2019-08-06] VITALS (33 sets, daily range): BP systolic 77–124; BP diastolic 41–80; PULSE 65–112; RESP 15–24; TEMP 35.9–36.6; O2SAT 87–100
--- NOTE | 2019-08-06 00:37 | PC.NURSE ---
Late Entry: 08/05/2019 at approximately ORACLE DATABASE DEVELOPER was doing vitals and I seen on the telemetry patient's Blood pressure was 76/38. I went to patient's room to assess and obtain a manual blood pressure. Patient was lethargic, knew he was in the hospital, the year was 2001, and couldn't say the president. We called the rapid response at 2040, crash cart was brought down, manual blood pressure was attempted and systolic was 70, FIBER OPTIC ASSEMBLER responded Adriel RT, Dr. Beatty, [place], ICU, [facility],halfway house counselor and ER. Blood sugar was 135, verbal orders for lactated ringers was obtained from Dr. Beatty for a 500ml bolus, CBC, CMP, Lactic acid, Magnesium, Troponin, Phosphorous, and a chest x-ray 1V were the orders I obtained verbally. After the fluid bolus finished patients blood pressure was 110/62 manually. Report was called to ANA M Davalos in ICU and patient and all his belongings were transferred to ICU-3. Patient was awake and answering questions. Family was updated and escorted with patient.
--- NOTE | 2019-08-06 00:53 | PM.MISC ---
Miscellaneous Note Purpose of Documentation: Rapid response was called due to episodes of alteration of mentation, and hypotensive episode blood pressure 70s over 60s. When I arrived patient was alert oriented x3, had no complaints of shortness of breath, no chest pain, telemetry sinus rhythm. Patient received 500 cc LR bolus, blood pressure improved to 100 over 60s, EKG showed normal sinus rhythm, chest x-ray showed a right pleural effusion, patient did complain of some abdominal distention. ABG showed hypoxia, PO2 of 70, PCO2 49.3 doing well on 2 L, no complaints of shortness of breath. Patient's troponin was 111, increase from baseline troponin of 83, lactic acid was 2.5, creatinine was 1.7, potassium 3.3 -Chest x-ray shows left pleural effusion -Patiently likely has hypotension from overdiuresis -Is improving after LR bolus -Lactic acidosis likely hypovolemic -Troponin elevation likely type II NSTEMI related to supply demand ischemia Plan -We will move the patient to the intensive care unit -Currently no active chest pain, trend troponins, therapeutic Lovenox, aspirin, statin -Given patient's depressed ejection fraction of 20%, will avoid fluids, can use pressors to maintain map greater than 65 -Hold diuretics, hold beta-mariam, hold blood pressure medications -Continue aspirin, statin, initiated therapeutic Lovenox, monitor telemetry's, serial EKGs -Abdominal ultrasound ordered to evaluate for ascites, patient does have liver cirrhosis on CT imaging, 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
--- NOTE | 2019-08-06 01:05 | ECG_ITS ---
Measurements Intervals [place] Rate: 66 P: AL: 0 QRS: 0 QRSD: 142 T: 200 QT: 460 QTc: 482 ATRIAL FIBRILLATION WITH ABERRANT CONDUCTION OR VENTRICULAR PREMATURE COMPLEXES LEFT BUNDLE BRANCH BLOCK [120+ ms QRS DURATION, 80+ ms Q/S IN V1/V2, 85+ ms R IN I I/aVL/V5/V6] WARNING: DATA QUALITY MAY AFFECT INTERPRETATION INTERPRETATION BASED ON A DEFAULT AGE OF 40 YEARS Compared to ECG 08/04/2019 22:16:53 Ventricular premature complex(es) now present Aberrant conduction of supraventricular beat(s) now present Left bundle-branch block now present Right-axis deviation no longer present Intraventricular conduction delay no longer present Electronically Signed On 08-06-2019 22:22:06 EXHIBIT CARPENTER by Shay Huff M.D. [email or web address]
[2019-08-06] MEDS: potassium chloride premix 40 MEQ/100 ML PREMIX 25 MEQ IV (01:31)
[2019-08-06] MEDS: enoxaparin 80 mg/0.8 mL Syringe SUBCUT ×2 (01:31→16:13)
[2019-08-06 01:54] LABS: Troponin(5th) Baseline 114 ng/mL (0-15)
--- NOTE | 2019-08-06 02:57 | ECG_ITS ---
Measurements Intervals [place] Rate: 80 P: AR: 0 QRS: 60 QRSD: 131 T: 254 QT: 410 QTc: 475 ATRIAL FIBRILLATION WITH ABERRANT CONDUCTION OR VENTRICULAR PREMATURE COMPLEXES INTRAVENTRICULAR CONDUCTION DELAY [130+ ms QRS DURATION] Compared to ECG 08/04/2019 22:16:53 Ventricular premature complex(es) now present Aberrant conduction of supraventricular beat(s) now present Right-axis deviation no longer present Electronically Signed On 08-06-2019 22:25:18 LIMEHOUSE WORKER by Shay Huff M.D. [email or web address]
[2019-08-06 03:45] LABS: Anion Gap 19.4 (5-19); Blood Urea Nitrogen 38 mg/dL (8-23); Calcium 9.7 mg/dL (8.5-10.5); Carbon Dioxide 28 mmol/L (22-29); Chloride 94 mmol/L (98-107); Glucose 147 mg/dL (65-115); Lactic Acid level (Lactate) 2.4 mmol/L (0.5-2.2); Osmolality Calculated 286 mOsm/kg (285-295); Potassium 3.4 mmol/L (3.5-5.1); Sodium 138 mmol/L (136-145)
[2019-08-06] MEDS: ipratropium-albuterol 3 mL Neb INHALATION ×6 (03:51→23:18)
--- NOTE | 2019-08-06 06:57 | ECG_ITS ---
Measurements Intervals [place] Rate: 73 P: NM: 0 QRS: 12 QRSD: 134 T: 193 QT: 431 QTc: 477 ATRIAL FIBRILLATION WITH ABERRANT CONDUCTION OR VENTRICULAR PREMATURE COMPLEXES INTRAVENTRICULAR CONDUCTION DELAY [130+ ms QRS DURATION] POSSIBLE SEPTAL MYOCARDIAL INFARCTION [30 ms Q WAVE IN V1/V2], OF INDETERMINATE AGE WARNING: DATA QUALITY MAY AFFECT INTERPRETATION Compared to ECG 08/04/2019 22:16:53 Ventricular premature complex(es) now present Aberrant conduction of supraventricular beat(s) now present Myocardial infarct finding now present Right-axis deviation no longer present Electronically Signed On 08-06-2019 22:25:06 WILDLIFE ENFORCEMENT MAJOR by Shay Huff M.D. [email or web address]
[2019-08-06 08:04] LABS: Troponin 5 6HR Delta -10.4 ng/L (0-12)
[2019-08-06 08:08] LABS: Troponin 5 6HR 103.6 ng/L (0-15)
[2019-08-06] MEDS: atorvastatin 40 mg Tablet PO (09:02)
[2019-08-06] MEDS: losartan 50 mg Tablet PO (09:02)
[2019-08-06] MEDS: ferrous sulfate EC 325 mg Tablet PO (09:02)
[2019-08-06] MEDS: aspirin 325 mg Tablet PO (09:02)
[2019-08-06] MEDS: pantoprazole DR 40 mg Tablet PO (09:02)
[2019-08-06] MEDS: pregabalin 75 mg Capsule PO ×2 (09:02→17:44)
[2019-08-06] MEDS: duloxetine 20 mg Capsule PO ×2 (09:02→17:44)
--- NOTE | 2019-08-06 10:22 | P.PN_ITS ---
Subjective Subjective: Interval history: Rapid response called overnight secondary to hypotension and altered mental status. Patient moved to ICU. Received 500 mL bolus with improved blood pressure. Diuretics and oral antihypertensives held. Reviewed overnight physician documentation. Noted to have moderate ascites on abdominal ultrasound, will request paracentesis. CODE STATUS changed to limited. Patient seen several times throughout the day, initially seen this morning, appears fatigued, short of breath even at rest. Discussed paracentesis which he is agreeable to. He had this done in the afternoon with removal of 4.5 L; fluid analysis requested. His breathing has improved significantly and his abdominal distention is almost completely resolved. Telemetry reviewed continues to show a variety of arrhythmias including V. tach which is not accurate. Medications: Reviewed: Yes Medication Review Details: Current Medications Generic Name Dose Route Start Last Admin Trade Name Freq PRN Reason Stop Dose Admin Albuterol/Ipratrop ium 3 ml 08/05/19 04:00 08/06/19 07:44 Duoneb INHALATION 3 ml Q4H.RESPIRATORY S CH Administration Aspirin 325 mg 08/05/19 09:00 08/06/19 09:02 Aspirin PO 325 mg DAILY EARL Administration Atorvastatin Calci um 40 mg 08/06/19 09:00 08/06/19 09:02 Lipitor PO 40 mg DAILY EARL Administration Bumetanide 1 mg 08/05/19 09:00 08/05/19 22:13 Bumex IV Not Given Q12H EARL Carvedilol 6.25 mg 08/05/19 09:00 08/05/19 18:09 Coreg PO 6.25 mg BID EARL Administration Cyanocobalamin 500 mcg 08/05/19 09:00 08/05/19 09:34 Vitamin B-12 PO 500 mcg DAILY EARL Administration Enoxaparin Sodium 80 mg 08/06/19 01:15 08/06/19 01:31 Lovenox SUBCUT 80 mg Q12H EARL Administration Ferrous Sulfate 325 mg 08/05/19 09:00 08/06/19 09:02 Ferrous Sulfate PO 325 mg DAILY EARL Administration Furosemide 40 mg 08/05/19 02:12 08/05/19 16:03 Lasix IVP 40 mg Q12H EARL Administration Norepinephrine Bit artrate 4 mg 254 mls @ 0 mls/h r 08/05/19 23:00 08/06/19 04:04 / Dextrose IV 1 mcg/min .Q0M EARL 3.8 mls/hr Titration Protocol Per Protocol Insulin Aspart 0 unit 08/05/19 08:00 08/06/19 08:49 Novolog SUBCUT Not Given TIDWM EARL Protocol Losartan Potassium 50 mg 08/05/19 08:00 08/06/19 09:02 Cozaar PO 50 mg BIDWM EARL Administration Metolazone 5 mg 08/05/19 09:00 08/05/19 09:37 Zaroxolyn PO 5 mg DAILY EARL Administration Morphine Sulfate 1 mg 08/05/19 04:33 08/05/19 05:22 Morphine IVP 1 mg Q4H PRN Administration SEVERE PAIN Pantoprazole Sodiu m 40 mg 08/05/19 09:00 08/06/19 09:02 Protonix PO 40 mg DAILY EARL Administration Vitals/I&O/Wt Last Vital Signs Temp 96.6 F L 08/06/19 03:00 Pulse 78 08/06/19 07:47 Resp 16 08/06/19 07:45 BP 121/65 08/06/19 09:02 Pulse Ox 96 08/06/19 07:45 08/05/19 08/06/19 08/06/19 22:59 06:59 14:59 Intake Total 740 / 1100 114.567 / 1214.567 Output Total 350 / 1000 300 / 1300 Balance 390 / 100 -185.433 / -85.433 Weight last 48 hrs Weight 78.97 kg Weight 77.111 kg Physical Exam Const: COMMON NORMALS: no apparent distress and oriented x3 GENERAL APPEARANCE: cooperative and frail appearing; not comfortable ORIENTATION/CONSCIOUSNESS: Yes awake HENMT: COMMON NORMALS: normocephalic, head/scalp atraumatic, hearing grossly normal bilaterally and moist oral mucous membranes HEAD & SCALP: normocephalic and atraumatic Eye: COMMON NORMALS: PERRL, EOMs intact bilaterally and conjunctivae normal CONJUNCTIVA: Yes conjunctivae normal PUPIL: Yes PERRL Neck/C-Spine: COMMON NORMALS: full ROM GENERAL: Yes normal visual inspection and Yes trachea midline Resp: COMMON NORMALS: normal respiratory effort, no retractions, no use of accessory muscles and clear to auscultation bilaterally EFFORT & INSPECTION: Yes able to speak in complete sentences, Yes symmetric chest movement and No tachypneic AUSCULTATION: clear to auscultation bilaterally OTHER: -appears dyspneic; on 3 L NC Cardio: COMMON NORMALS: regular rate, regular rhythm, S1 normal heart sound, S2 normal heart sound and no murmurs RATE: regular rate RHYTHM: regular rhythm HEART SOUNDS: S1 normal and S2 normal GI: COMMON NORMALS: soft to palpation and non-tender INSPECTION: Yes abdominal distension AUSCULTATION: Yes normoactive bowel sounds PALPATION: Yes soft : BLADDER/KIDNEY EXAM: Yes catheter in place Catheter type (Male): urethral Back/Pelvis: COMMON NORMALS: thoracic and lumbar spine normal to inspection Extremity: COMMON NORMALS: normal to inspection, full ROM and no clubbing, cyanosis or edema; negative for no pedal edema Neuro: COMMON NORMALS: oriented x3, moves all extremities, no focal motor deficits and no sensory deficits noted Psych: COMMON NORMALS: mental status grossly normal, thought process normal, cooperative, affect normal and speech normal SPEECH: Yes normal speech THOUGHT PROCESS: normal thought process Skin: COMMON NORMALS: no rashes or lesions noted, no jaundice, no petechiae and no mottling GENERAL SKIN EXAM: no rashes or lesions noted Urinary Catheter Management^: Lanza: Cath Placed During This Visit: yes Urethral Indwelling: Yes Reason for Continuing Indwelling Catheter: Accurate Measurement of Urinary Output in Critically Ill Patients Urinary Catheter Date of Insertion: 08/06/19 Urinary Catheter Time of Insertion: 02:41 Data : 08/05/19 21:21 08/06/19 03:16 Micro: Microbiology 08/04/19 21:52 Blood Culture - Preliminary Blood NEGATIVE TO DATE 08/04/19 21:48 Blood Culture - Preliminary Blood NEGATIVE TO DATE A&P Assessment and plan (1) Acute respiratory failure with hypoxia: -secondary to acute combined systolic and diastolic CHF exacerbation as evidenced by SOB, LE edema, elevated BNP (6584) -last Echo done in 2014 with EF=40%, G1DD, noted RWMA; repeat Echo: EF=20%, global hypokinesis, moderate pulmonary HTN (53), severe TR, mild MR -CXR-small L pleural effusion, CTA negative for PE, showing evidence of L pleural effusion, possible pulmonary HTN -supplemental oxygen as needed; monitor respiratory status. Not oxygen dependent at baseline -diuresis on hold due to hypotension -telemetry monitoring -daily weights, monitor Is & Os -continue to monitor lytes and renal function with diuresis -cardiac diabetic diet as tolerated -VSS: continue to monitor -ABG noted, no hypoxia -reviewed troponins, noted delta of 4 Status: Acute Code(s): J96.01 - Acute respiratory failure with hypoxia (2) Frequent falls: -recurrent falls with most recent fall about 1 week ago -has hx of Nayeli Toure? syndrome, peripheral neuropathy -Follow-up L-spine x-ray; evidence of new or subacute wedging fracture of L1 on CTA -Pain control as needed, strict fall precautions -PT/OT evaluations -ambulates with walker, WC Status: Acute Code(s): R29.6 - Repeated falls Additional A&P Information -hx of atrial fibrillation; on AC with full dose ASA, no further anticoagulation due to fall risk; HR controlled -HTN -NIDDM type II; A1c-7.7; Accuchecks, ISS, hypoglycemia precautions -hx of CAD s/p stenting, CABG with redo in 1996 -hx of ischemic cardiomyopathy; f/u with Dr. Refugio Gracia carotid stenosis s/p CEA with angioplasty -Hyperlipidemia -NSTEMI; likely type II; troponins reviewed, delta of 4. Cardiology consult appreciated; medical management -Moderate pulmonary HTN -Liver cirrhosis with moderate ascites on abdomen US; paracentesis done for therapeutic and diagnostic purposes; removal of 4.5 L with noted symptomatic improvement. F/u fluid analysis -continue meds as ordered -GI ppx with PPI -DVT ppx not needed as on full dose ASA -Dispo: home -Code status: LIMITED, no CPR or intubation -moved to ICU overnight for closer monitoring Attestations Medical Necessity Statement*: Patient requires hospitalization for continued management of NSTEMI, ascites, pulmonary HTN. Time Spent in Patient Care: Greater than 35 minutes (>than 50% of time spent in counselling and/or direct pt care on unit) . Critical Care Time: The high probability of a clinically significant, sudden or life threatening deterioration of the patient's [cardiovascular, respiratory] system(s) required my full and direct attention, intervention and personal management. The critical care time is as shown. This time is in addition to time spent performing any reported procedures but includes the following: [x] Data and vital sign review and interpretation [x] Patient assessment, examination and intervention [x] Documentation [x] Medication orders and management Critical Care Time (min): 25 Coding Level of Care Code Acute Ornamental Metal Worker Helper for Chg Fwd Exam Problem Focused Diagnoses Acute respiratory failure with hypoxia J96.01 Frequent falls R29.6
--- NOTE | 2019-08-06 10:28 | US_ITS ---
WS: [id number] ULTRASOUND-GUIDED THERAPEUTIC PARACENTESIS HISTORY: 83 years old Male with moderate ascites PROCEDURE: Preprocedure ultrasound of the right lower quadrant showed a large amount of ascitic fluid . Informed consent was obtained from patient's daughter, due to patient's altered mental status. Unde r ultrasound guidance, left lower quadrant was evaluated and the skin was marked and subsequently pre pped and draped in a sterile manner. Buffered 1% lidocaine was used to measure the size the skin and soft tissues. A small skin incision was made and a 6 Estonian Nohw-P-ytajewbg catheter was slowly advan sandip to the abdominal wall. Upon loss of resistance and aspiration of ascitic fluid, the catheter was advanced and needle system was simultaneously removed. The catheter was then connected to suction and 4500 cc of cloudy dark yellow ascitic fluid fluid was collected. Sample was delivered to laboratory for further analysis. No immediate apparent postprocedure complication was encountered. US/US paracentesis abd w [id number] IMPRESSION: Ultrasound-guided left lower quadrant paracentesis with collection of 4500 cc o f dark cloudy yellow ascitic fluid. Samples delivered to laboratory for further analysis.
[2019-08-06 11:39] LABS: INR 1.28 (0.8-1.2)
[2019-08-06 11:41] LABS: Glucose Point of Care 109 mg/dL (70-110)
--- NOTE | 2019-08-06 13:44 | PC.OT ---
OTR attempted visit secondary to change in status. In morning, nursing requested therapy wait until the afternoon. Pt. sleeping when OTR attempted visit in afternoon. Treatment by OTR will be attempted tomorrow.
--- NOTE | 2019-08-06 14:01 | PC.CHAP ---
Pastoral Care Encounter/Spiritual Assessment Type of Contact [] Declined welt sole layer visit [] Patient/Family/Request visit [] Outpatient visit [] Follow-up visit [] Physician referral [] Code/Alert [x] Routine visit [] Staff referral [] Actively dying [x] Patient sleeping [] Family support [] [] Out of room [] Palliative care [] [] Receiving care in room [] Pre-surgical visit [] Trauma [] Long length of stay [x] ICU visit [] Other: Relational/Emotional Strength [] Patient feels connected with others/family/visitors/staff [] Distress [] Loneliness/isolation [] Abandonment Spirituality of Patient [x] Person of Kathleen [x] Attends Latter-Day of their Kathleen [x] Believes in Prayer [] Reads Bible or Yazidism materials [] There are Spiritual issues to be addressed Telephone Instrument Supervisor Interventions [x] Prayer [] Active listening [] Non-anxious presence [] Spiritual/emotional support [] Crisis/trauma care [] Spiritual counseling [] Bereavement support [] Provided bereavement packet [] Provided Bible/devotional materials [] Provided toy/stuffed animal, coloring book to patient or family member [] Provided Communion [] Anointing/[place] [] Salvation [] Completed spiritual assessment [x] Other: Impact on Illness or Injury [] Angry [] Fearful [] Anxious [] Often cries [] Exhaustion [] Unable to work [] Unable to attend holiness [] Unable to walk/stand [] Unable to read [] Unable to drive [] Unable to eat/drink [] Unable to sleep [] Unable to be with family [] Patient intubated [] Other: Summary Patient was not disturbed by Flynn, but prayer was given with family (10) waiting in lounge. Time spent with patient 20min
--- NOTE | 2019-08-06 14:33 | PC.NURSE ---
Paracentesis in progress.
[2019-08-06 14:36] LABS: Glucose Point of Care 127 mg/dL (70-110)
[2019-08-06 15:53] LABS: Body Fluid WBC 601 u/L; RBC, Body Fluid 1 10^3/uL (0-0)
[2019-08-06 15:57] LABS: Color, Body Fluid PALE YELLOW (PALE YELLOW)
[2019-08-06 15:58] LABS: PATH Referral YES
[2019-08-06] MEDS: cyanocobalamin 1,000 mcg Tablet 500 MCG PO (16:13)
[2019-08-06 17:20] LABS: Glucose Point of Care 153 mg/dL (70-110)
--- NOTE | 2019-08-06 18:59 | P.PN_ITS ---
Subjective Subjective: Interval history: Abdominal ultrasound was consistent with ascites. More than 4 L of fluid was drained. He is feeling much better and improved. Medications: Reviewed: Yes Medication Review Details: Current Medications Generic Name Dose Route Start Last Admin Trade Name Marcos PRN Reason Stop Dose Admin Albuterol/Ipratrop ium 3 ml 08/05/19 04:00 08/06/19 07:44 Duoneb INHALATION 3 ml Q4H.RESPIRATORY S CH Administration Aspirin 325 mg 08/05/19 09:00 08/06/19 09:02 Aspirin PO 325 mg DAILY EARL Administration Atorvastatin Calci um 40 mg 08/06/19 09:00 08/06/19 09:02 Lipitor PO 40 mg DAILY EARL Administration Bumetanide 1 mg 08/05/19 09:00 08/05/19 22:13 Bumex IV Not Given Q12H EARL Carvedilol 6.25 mg 08/05/19 09:00 08/05/19 18:09 Coreg PO 6.25 mg BID EARL Administration Cyanocobalamin 500 mcg 08/05/19 09:00 08/05/19 09:34 Vitamin B-12 PO 500 mcg DAILY EARL Administration Enoxaparin Sodium 80 mg 08/06/19 01:15 08/06/19 01:31 Lovenox SUBCUT 80 mg Q12H EARL Administration Ferrous Sulfate 325 mg 08/05/19 09:00 08/06/19 09:02 Ferrous Sulfate PO 325 mg DAILY EARL Administration Furosemide 40 mg 08/05/19 02:12 08/05/19 16:03 Lasix IVP 40 mg Q12H EARL Administration Norepinephrine Bit artrate 4 mg 254 mls @ 0 mls/h r 08/05/19 23:00 08/06/19 04:04 / Dextrose IV 1 mcg/min .Q0M EARL 3.8 mls/hr Titration Protocol Per Protocol Insulin Aspart 0 unit 08/05/19 08:00 08/06/19 08:49 Novolog SUBCUT Not Given TIDWM EARL Protocol Losartan Potassium 50 mg 08/05/19 08:00 08/06/19 09:02 Cozaar PO 50 mg BIDWM EARL Administration Metolazone 5 mg 08/05/19 09:00 08/05/19 09:37 Zaroxolyn PO 5 mg DAILY EARL Administration Morphine Sulfate 1 mg 08/05/19 04:33 08/05/19 05:22 Morphine IVP 1 mg Q4H PRN Administration SEVERE PAIN Pantoprazole Sodiu m 40 mg 08/05/19 09:00 08/06/19 09:02 Protonix PO 40 mg DAILY EARL Administration Vitals/I&O/Wt Last Vital Signs Temp 97.4 F L 08/06/19 14:00 Pulse 105 H 08/06/19 17:00 Resp 18 08/06/19 17:00 BP 124/80 08/06/19 17:46 Pulse Ox 98 08/06/19 17:00 08/06/19 08/06/19 08/06/19 06:59 14:59 22:59 Intake Total 114.567 / 1214.567 850 / 850 Output Total 300 / 1300 Balance -185.433 / -85.433 850 / 850 Weight last 48 hrs Weight 174 lb 1.6 oz Weight 170 lb Physical Exam Narrative: EXAM NARRATIVE: GENERAL: Patient is Well oriented not in distress anymore. HEENT: No cyanosis. No icterus. No pallor. HEART: Irregularly irregular S1 and S2. No murmur, rub or gallop. LUNGS: Right mild inspiratory crackles ABDOMEN: Soft and nondistended non-tender positive bowel sounds. EXTREMITIES: Lower extremities without edema bilaterally. Urinary Catheter Management^: Lanza: Cath Placed During This Visit: yes Urethral Indwelling: Yes Reason for Continuing Indwelling Catheter: Accurate Measurement of Urinary Output in Critically Ill Patients Urinary Catheter Date of Insertion: 08/06/19 Urinary Catheter Time of Insertion: 02:41 Data : 08/05/19 21:21 08/06/19 03:16 Micro: Microbiology 08/06/19 14:20 Gram Stain - Final Ascites Fluid 08/04/19 21:52 Blood Culture - Preliminary Blood NEGATIVE TO DATE 08/04/19 21:48 Blood Culture - Preliminary Blood NEGATIVE TO DATE A&P Assessment and plan (1) Acute respiratory failure with hypoxia: Currently well compensated heart failure lee. Continue to hold diuretics. Once blood pressure improve I will start patient on Sildenafil Status: Acute Code(s): J96.01 - Acute respiratory failure with hypoxia (2) Pulmonary hypertension: Worsening of pulmonary hypertension which is one of the major cause for respiratory failure. Once blood pressure improves we may will add sildenafil. For now continue oxygen. Status: Acute Code(s): I27.20 - Pulmonary hypertension, unspecified (3) Atrial fibrillation: Rate controlled. Continue medicine. Hold carvedilol for blood pressure issues Status: Acute Qualifiers: Atrial fibrillation type: other persistent Qualified Code(s): I48.19 - Other persistent atrial fibrillation Code(s): I48.91 - Unspecified atrial fibrillation (4) Ischemic cardiomyopathy: Patient has severely depressed LV function by recent echo. Ejection fraction has dropped from moderately depressed 40% to 20% now. He Has history of coronary artery bypass surgery For many years ago. He is DNR/DNI would not like to pursue any intervention and not that is recommended at the moment. We will continue to manage him medically.Abnormal cardiac markers are most likely type II and due to pulmonary hypertension and Congestive heart failure. On todays visit we will continue current regimen. Status: Acute Code(s): I25.5 - Ischemic cardiomyopathy (5) Abdominal aortic aneurysm: We will repeat ultrasound once ascites has not been cleared Status: Acute Code(s): I71.4 - Abdominal aortic aneurysm, without rupture (6) Hypotension: Improving. Currently normotensive Status: Acute Code(s): I95.9 - Hypotension, unspecified (7) Abdominal distention: Post paracentesis feeling much better. Status: Acute Code(s): R14.0 - Abdominal distension (gaseous) Attestations Medical Necessity Statement*: Patient about continuation hospitalization for above defined care. Coding Level of Care Code Established Pt Acute Qc Manager for [facility] Fwd Patient Type Established History Expanded Problem Focused Exam Expanded Problem Focused Medical Decision Making Moderate Complexity Diagnoses Acute respiratory failure with hypoxia J96.01 Pulmonary hypertension I27.20 Atrial fibrillation I48.19 Atrial fibrillation type: other persistent Ischemic cardiomyopathy I25.5 Abdominal aortic aneurysm I71.4 Hypotension I95.9 Abdominal distention R14.0
--- NOTE | 2019-08-06 19:00 | NUR.SHIFT ---
Report given to ANA M Wheeler. Pt is a paeans , alert 83 yo male. He is on 3lpm/NC. He had a paracentisis this afternoon, 4500ml of green tinted rown fluid pulled off. Pt tolerated well. He is on Norepinephrine gtt at 1 mcg/min. He needed it at 2 mcg/min shortly after the procedure. He is bleeding from his meatus around the saul, a slow leak.
--- NOTE | 2019-08-06 22:27 | US_ITS ---
WS: [id number] ABDOMINAL ULTRASOUND LIMITED HISTORY: 83 years old Male with evaluate ascites COMPARISON: None available. TECHNIQUE: Grayscale ultrasound examination of the abdomen. FINDINGS: Moderate amount of ascites seen in the abdomen 4 quadrants.
[2019-08-06] MEDS: sodium chloride 0.9% 500 ML 250 ML IV (23:34)
[2019-08-07] VITALS (47 sets, daily range): BP systolic 71–121; BP diastolic 45–82; PULSE 65–115; RESP 15–25; TEMP 36.4–37.3; O2SAT 87–100
[2019-08-07] MEDS: enoxaparin 80 mg/0.8 mL Syringe SUBCUT ×2 (01:20→13:06)
[2019-08-07] MEDS: ipratropium-albuterol 3 mL Neb INHALATION ×6 (03:05→23:03)
[2019-08-07 05:11] LABS: Anion Gap 15.7 (5-19); Blood Urea Nitrogen 40 mg/dL (8-23); Calcium 9.1 mg/dL (8.5-10.5); Carbon Dioxide 31 mmol/L (22-29); Chloride 94 mmol/L (98-107); Glucose 145 mg/dL (65-115); Osmolality Calculated 284 mOsm/kg (285-295); Potassium 3.7 mmol/L (3.5-5.1); Sodium 137 mmol/L (136-145)
[2019-08-07 07:40] LABS: Glucose Point of Care 125 mg/dL (70-110)
[2019-08-07 07:40] LABS: Peritoneal Fluid Spec Gravity 1.027
--- NOTE | 2019-08-07 07:45 | PC.NURSE ---
Pt oozing blood from his meatus. Paracentisis site is slowly dripping blood. Pericare, catheter change provided. Linen change provided.
[2019-08-07] MEDS: ferrous sulfate EC 325 mg Tablet PO (09:03)
[2019-08-07] MEDS: duloxetine 20 mg Capsule PO ×2 (09:03→17:15)
[2019-08-07] MEDS: pregabalin 75 mg Capsule PO ×2 (09:03→17:15)
[2019-08-07] MEDS: pantoprazole DR 40 mg Tablet PO (09:03)
[2019-08-07] MEDS: atorvastatin 40 mg Tablet PO (09:04)
[2019-08-07] MEDS: aspirin 325 mg Tablet PO (09:04)
[2019-08-07] MEDS: cyanocobalamin 1,000 mcg Tablet 500 MCG PO (09:21)
--- NOTE | 2019-08-07 11:01 | PM.PN ---
Subjective Subjective: Interval history: AM labs noted, had 300 mL urine output overnight. BP improved this AM though remains on Levophed currently at 1.5 mcg/min. Seems to be in better spirits today. Per nursing staff they have noticed some oozing from paracentesis site as well as around catheter insertion site. Pressure dressings in both places. Has been ambulatory. Currently sitting in a chair. Discussed disposition and he would like to go to [facility] for rehab. Medications: Reviewed: Yes Medication Review Details: Current Medications Generic Name Dose Route Start Last Admin Trade Name Freq PRN Reason Stop Dose Admin Albuterol/Ipratrop ium 3 ml 08/05/19 04:00 08/07/19 11:00 Duoneb INHALATION 3 ml Q4H.RESPIRATORY S CH Administration Aspirin 325 mg 08/05/19 09:00 08/07/19 09:04 Aspirin PO 325 mg DAILY EARL Administration Atorvastatin Calci um 40 mg 08/06/19 09:00 08/07/19 09:04 Lipitor PO 40 mg DAILY EARL Administration Bumetanide 1 mg 08/05/19 09:00 08/05/19 22:13 Bumex IV Not Given Q12H EARL Carvedilol 6.25 mg 08/05/19 09:00 08/05/19 18:09 Coreg PO 6.25 mg BID EARL Administration Cyanocobalamin 500 mcg 08/05/19 09:00 08/07/19 09:21 Vitamin B-12 PO 500 mcg DAILY EARL Administration Enoxaparin Sodium 80 mg 08/06/19 01:15 08/07/19 01:20 Lovenox SUBCUT 80 mg Q12H EARL Administration Ferrous Sulfate 325 mg 08/05/19 09:00 08/07/19 09:03 Ferrous Sulfate PO 325 mg DAILY EARL Administration Furosemide 40 mg 08/05/19 02:12 08/05/19 16:03 Lasix IVP 40 mg Q12H EARL Administration Norepinephrine Bit artrate 4 mg 254 mls @ 0 mls/h r 08/05/19 23:00 08/06/19 22:01 / Dextrose IV 1.5 mcg/min .Q0M EARL 5.7 mls/hr Titration Protocol Per Protocol Insulin Aspart 0 unit 08/05/19 08:00 08/07/19 07:41 Novolog SUBCUT Not Given TIDWM EARL Protocol Losartan Potassium 50 mg 08/05/19 08:00 08/06/19 17:46 Cozaar PO Not Given BIDWM [facility] Metolazone 5 mg 08/05/19 09:00 08/05/19 09:37 Zaroxolyn PO 5 mg DAILY EARL Administration Morphine Sulfate 1 mg 08/05/19 04:33 08/05/19 05:22 Morphine IVP 1 mg Q4H PRN Administration SEVERE PAIN Pantoprazole Sodiu m 40 mg 08/05/19 09:00 08/07/19 09:03 Protonix PO 40 mg DAILY EARL Administration Vitals/I&O/Wt Last Vital Signs Temp 98.2 F 08/07/19 06:00 Pulse 71 08/07/19 10:58 Resp 16 08/07/19 10:58 BP 121/59 08/07/19 06:00 Pulse Ox 95 08/07/19 10:58 08/06/19 08/07/19 08/07/19 22:59 06:59 14:59 Intake Total 162.623 / 1053.536 Output Total 300 / 300 Balance 162.623 / 1053.536 -300 / 753.536 Weight last 48 hrs Weight 78.97 kg Physical Exam Const: COMMON NORMALS: no apparent distress and oriented x3 GENERAL APPEARANCE: cooperative and frail appearing; not comfortable ORIENTATION/CONSCIOUSNESS: Yes awake HENMT: COMMON NORMALS: normocephalic, head/scalp atraumatic, hearing grossly normal bilaterally and moist oral mucous membranes HEAD & SCALP: normocephalic and atraumatic Eye: COMMON NORMALS: PERRL, EOMs intact bilaterally and conjunctivae normal CONJUNCTIVA: Yes conjunctivae normal PUPIL: Yes PERRL Neck/C-Spine: COMMON NORMALS: full ROM GENERAL: Yes normal visual inspection and Yes trachea midline Resp: COMMON NORMALS: normal respiratory effort, no retractions, no use of accessory muscles and clear to auscultation bilaterally EFFORT & INSPECTION: Yes able to speak in complete sentences, Yes symmetric chest movement and No tachypneic AUSCULTATION: clear to auscultation bilaterally OTHER: -on 2 L NC Cardio: COMMON NORMALS: regular rate, regular rhythm, S1 normal heart sound, S2 normal heart sound and no murmurs RATE: regular rate RHYTHM: regular rhythm HEART SOUNDS: S1 normal and S2 normal GI: COMMON NORMALS: soft to palpation and non-tender AUSCULTATION: Yes normoactive bowel sounds PALPATION: Yes soft OTHER: -pressure dressing in place over lower abdomen : BLADDER/KIDNEY EXAM: Yes catheter in place OTHER: -some oozing noted at penile area at catheter insertion site; dressings in place Back/Pelvis: COMMON NORMALS: thoracic and lumbar spine normal to inspection Extremity: COMMON NORMALS: normal to inspection, full ROM and no clubbing, cyanosis or edema; negative for no pedal edema Neuro: COMMON NORMALS: oriented x3, moves all extremities, no focal motor deficits and no sensory deficits noted Psych: COMMON NORMALS: mental status grossly normal, thought process normal, cooperative, affect normal and speech normal SPEECH: Yes normal speech THOUGHT PROCESS: normal thought process Skin: COMMON NORMALS: no rashes or lesions noted, no jaundice, no petechiae and no mottling GENERAL SKIN EXAM: no rashes or lesions noted Urinary Catheter Management^: Lanza: Cath Placed During This Visit: yes Urethral Indwelling: Yes Reason for Continuing Indwelling Catheter: Accurate Measurement of Urinary Output in Critically Ill Patients Urinary Catheter Date of Insertion: 08/06/19 Urinary Catheter Time of Insertion: 02:41 Data : 08/05/19 21:21 08/07/19 04:02 Micro: Microbiology 08/06/19 14:20 Gram Stain - Final Ascites Fluid Body Fluid Culture - Preliminary A&P Assessment and plan (1) Acute respiratory failure with hypoxia: -secondary to 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 Patient may be started on Sildenafil once BP improves -CXR-small L pleural effusion, CTA negative for PE, showing evidence of L pleural effusion, possible pulmonary HTN -supplemental oxygen as needed; monitor respiratory status. 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 Refugio Gracia carotid stenosis s/p CEA with angioplasty -Hyperlipidemia -NSTEMI; likely type II; troponins reviewed, delta of 4. Cardiology consult appreciated; medical management -Moderate pulmonary HTN -Liver cirrhosis with moderate ascites on abdomen US; paracentesis done for therapeutic and diagnostic purposes; removal of 4.5 L with noted symptomatic improvement. Fluid analysis noted and not consistent with SBP; gram stain +WBCs, no organisms, no growth on culture so far -continue meds as ordered -GI ppx with PPI -DVT ppx not needed as on full dose ASA -Dispo: SNF; [facility] choice is [facility] -Code status: LIMITED, no CPR or intubation -continue ICU care due to pressor support Attestations Medical Necessity Statement*: Patient requires hospitalization for continued optimization of medical management for ischemic cardiomyopathy and pulmonary hypertension. Time Spent in Patient Care: Greater than 35 minutes (>than 50% of time spent in counselling and/or direct pt care on unit). Coding Level of Care Code Acute Linter Tender for Doc [place] Exam Problem Focused Diagnoses Acute respiratory failure with hypoxia J96.01 Frequent falls R29.6
[2019-08-07 11:13] LABS: Glucose Point of Care 184 mg/dL (70-110)
[2019-08-07] MEDS: fluticasone nasal spray 16gm Btl 1 SPRAY NASAL (13:41)
[2019-08-07 16:47] LABS: Glucose Point of Care 108 mg/dL (70-110)
--- NOTE | 2019-08-07 17:17 | PC.CHAP ---
Pastoral Care Encounter/Spiritual Assessment Type of Contact [] Declined physicist solid earth visit [] Patient/Family/Request visit [] Outpatient visit [] Follow-up visit [] Physician referral [] Code/Alert [x] Routine visit [] Staff referral [] Actively dying [] Patient sleeping [x] Family support [] [] Out of room [] Palliative care [] [] Receiving care in room [] Pre-surgical visit [] Trauma [] Long length of stay [x] ICU visit [] Other: Relational/Emotional Strength [x] Patient feels connected with others/family/visitors/staff [] Distress [] Loneliness/isolation [] Abandonment Spirituality of Patient [] Person of Kathleen [] Attends Synagogue of their Kathleen [] Believes in Prayer [] Reads Bible or Jainism materials [] There are Spiritual issues to be addressed Ditch Digger Interventions [x] Prayer [x] Active listening [x] Non-anxious presence [x] Spiritual/emotional support [] Crisis/trauma care [] Spiritual counseling [] Bereavement support [] Provided bereavement packet [] Provided Bible/devotional materials [] Provided toy/stuffed animal, coloring book to patient or family member [] Provided Communion [] Anointing/[place] [] Salvation [x] Completed spiritual assessment [] Other: Impact on Illness or Injury [] Angry [] Fearful [] Anxious [] Often cries [] Exhaustion [] Unable to work [] Unable to attend anabaptism [x] Unable to walk/stand [] Unable to read [] Unable to drive [] Unable to eat/drink [] Unable to sleep [] Unable to be with family [] Patient intubated [] Other: Summary Patient stated that he was feeling much better. He said that he was going to [facility] to do rehab. Ditch Digger prayed with patient and son. Patient was visited by Ditch Diggerdena Alfred Time spent with patient 15 minutes
--- NOTE | 2019-08-07 18:36 | P.PN_ITS ---
Subjective Subjective: Interval history: Continues to feel better however still on pressor. Medications: Reviewed: Yes Medication Review Details: Current Medications Generic Name Dose Route Start Last Admin Trade Name Marcos PRN Reason Stop Dose Admin Albuterol/Ipratrop ium 3 ml 08/05/19 04:00 08/07/19 11:00 Duoneb INHALATION 3 ml Q4H.RESPIRATORY S CH Administration Aspirin 325 mg 08/05/19 09:00 08/07/19 09:04 Aspirin PO 325 mg DAILY EARL Administration Atorvastatin Calci um 40 mg 08/06/19 09:00 08/07/19 09:04 Lipitor PO 40 mg DAILY EARL Administration Bumetanide 1 mg 08/05/19 09:00 08/05/19 22:13 Bumex IV Not Given Q12H EARL Carvedilol 6.25 mg 08/05/19 09:00 08/05/19 18:09 Coreg PO 6.25 mg BID EARL Administration Cyanocobalamin 500 mcg 08/05/19 09:00 08/07/19 09:21 Vitamin B-12 PO 500 mcg DAILY EARL Administration Enoxaparin Sodium 80 mg 08/06/19 01:15 08/07/19 01:20 Lovenox SUBCUT 80 mg Q12H EARL Administration Ferrous Sulfate 325 mg 08/05/19 09:00 08/07/19 09:03 Ferrous Sulfate PO 325 mg DAILY EARL Administration Furosemide 40 mg 08/05/19 02:12 08/05/19 16:03 Lasix IVP 40 mg Q12H EARL Administration Norepinephrine Bit artrate 4 mg 254 mls @ 0 mls/h r 08/05/19 23:00 08/06/19 22:01 / Dextrose IV 1.5 mcg/min .Q0M EARL 5.7 mls/hr Titration Protocol Per Protocol Insulin Aspart 0 unit 08/05/19 08:00 08/07/19 07:41 Novolog SUBCUT Not Given TIDWM [facility] Protocol Losartan Potassium 50 mg 08/05/19 08:00 08/06/19 17:46 Cozaar PO Not Given BIDWM EARL Metolazone 5 mg 08/05/19 09:00 08/05/19 09:37 Zaroxolyn PO 5 mg DAILY EARL Administration Morphine Sulfate 1 mg 08/05/19 04:33 08/05/19 05:22 Morphine IVP 1 mg Q4H PRN Administration SEVERE PAIN Pantoprazole Sodiu m 40 mg 08/05/19 09:00 08/07/19 09:03 Protonix PO 40 mg DAILY EARL Administration Vitals/I&O/Wt Last Vital Signs Temp 97.6 F 08/07/19 13:30 Pulse 101 H 08/07/19 18:00 Resp 19 H 08/07/19 18:00 BP 88/68 08/07/19 17:30 Pulse Ox 91 08/07/19 18:00 08/07/19 08/07/19 08/07/19 06:59 14:59 22:59 Intake Total 853.872 / 853.872 Output Total 300 / 300 300 / 300 Balance -300 / 753.536 853.872 / 853.872 -300 / 553.872 Weight last 48 hrs Weight 174 lb 1.6 oz Physical Exam Narrative: EXAM NARRATIVE: GENERAL: Patient is Well oriented not in distress anymore. HEENT: No cyanosis. No icterus. No pallor. HEART: Irregularly irregular S1 and S2. No murmur, rub or gallop. LUNGS: Right inspiratory crackles ABDOMEN: Soft and nondistended non-tender positive bowel sounds. EXTREMITIES: Lower extremities without edema bilaterally. Urinary Catheter Management^: Lanza: Cath Placed During This Visit: yes Urethral Indwelling: Yes Reason for Continuing Indwelling Catheter: Accurate Measurement of Urinary Output in Critically Ill Patients Urinary Catheter Date of Insertion: 08/06/19 Urinary Catheter Time of Insertion: 02:41 Data : 08/05/19 21:21 08/07/19 04:02 Micro: Microbiology 08/06/19 14:20 Gram Stain - Final Ascites Fluid Body Fluid Culture - Preliminary A&P Assessment and plan (1) Acute respiratory failure with hypoxia: Continue current regimen. Appeared to be compensated. Status: Acute Code(s): J96.01 - Acute respiratory failure with hypoxia (2) Pulmonary hypertension: Worsening of pulmonary hypertension which is one of the major cause for respiratory failure. Once blood pressure improves we may will add sildenafil. For now continue oxygen. Status: Acute Code(s): I27.20 - Pulmonary hypertension, unspecified (3) Atrial fibrillation: Rate controlled. Continue medicine. Hold carvedilol for blood pressure issues Status: Acute Qualifiers: Atrial fibrillation type: other persistent Qualified Code(s): I48.19 - Other persistent atrial fibrillation Code(s): I48.91 - Unspecified atrial fibrillation (4) Ischemic cardiomyopathy: Patient has severely depressed LV function by recent echo. Ejection fraction has dropped from moderately depressed 40% to 20% now. He Has history of coronary artery bypass surgery For many years ago. He is DNR/DNI would not like to pursue any intervention and not that is recommended at the moment. We will continue to manage him medically.Abnormal cardiac markers are most likely type II and due to pulmonary hypertension and Congestive heart failure. On todays visit we will continue current regimen. Status: Acute Code(s): I25.5 - Ischemic cardiomyopathy (5) Abdominal aortic aneurysm: We will repeat ultrasound once ascites has not been cleared Status: Acute Code(s): I71.4 - Abdominal aortic aneurysm, without rupture (6) Hypotension: Improving. Currently normotensive Status: Acute Code(s): I95.9 - Hypotension, unspecified (7) Abdominal distention: Post paracentesis feeling much better. Status: Acute Code(s): R14.0 - Abdominal distension (gaseous) Attestations Medical Necessity Statement*: Patient requires Continuation hospitalization for above defined care Coding Level of Care Code Established Pt Acute Post Graduate Intern for Chg Fwd Patient Type Established History Expanded Problem Focused Exam Expanded Problem Focused Medical Decision Making Moderate Complexity Diagnoses Acute respiratory failure with hypoxia J96.01 Pulmonary hypertension I27.20 Atrial fibrillation I48.19 Atrial fibrillation type: other persistent Ischemic cardiomyopathy I25.5 Abdominal aortic aneurysm I71.4 Hypotension I95.9 Abdominal distention R14.0
[2019-08-08] VITALS (38 sets, daily range): BP systolic 80–122; BP diastolic 40–93; PULSE 68–105; RESP 14–25; TEMP 36.8–37.1; O2SAT 91–100
[2019-08-08] MEDS: ipratropium-albuterol 3 mL Neb INHALATION ×6 (03:18→23:43)
[2019-08-08 05:13] LABS: Basophils % 0.2 %; Eosinophils # 0.4 10^3/uL (0.0-0.8); Eosinophils % 6.5 %; Hematocrit 40.9 % (42.0-52.0); Hemoglobin 12.9 g/dL (11.7-16.6); Lymphocytes # 1.1 10^3/uL (0.8-4.8); Lymphocytes % 18.5 %; Mean Corpuscular HGB Conc 31.5 g/dL (30.0-36.0); Mean Corpuscular Hemoglobin 29.9 pg (28.0-34.0); Mean Corpuscular Volume 94.7 fL (80-94); Mean Platelet Volume 9.9 fL (7.4-10.4); Monocytes # 0.8 10^3/uL (0.2-0.9); Monocytes % 13.6 %; Neutrophils # 3.7 10^3/uL (1.8-7.7); Neutrophils % 60.9 %; Nucleated Red Blood Cells % 0 %; Platelet Count 171 10^3/cmm (130-400); Red Blood Count 4.32 10^6/uL (4.1-5.3); Red Cell Distribution Width 14.3 % (12.1-15.1); White Blood Count 6.1 10^3/uL (4.0-10.0)
[2019-08-08 05:22] LABS: INR 1.25 (0.8-1.2)
[2019-08-08 05:35] LABS: Anion Gap 14.7 (5-19); Blood Urea Nitrogen 45 mg/dL (8-23); Calcium 9.4 mg/dL (8.5-10.5); Carbon Dioxide 30 mmol/L (22-29); Chloride 95 mmol/L (98-107); Creatinine Clr Calc Pharmacy 31.8939; Glucose 150 mg/dL (65-115); Osmolality Calculated 281 mOsm/kg (285-295); Potassium 4.7 mmol/L (3.5-5.1); Sodium 135 mmol/L (136-145)
[2019-08-08] MEDS: atorvastatin 40 mg Tablet PO (08:49)
[2019-08-08] MEDS: fluticasone nasal spray 16gm Btl 1 SPRAY NASAL ×2 (08:49→17:51)
[2019-08-08] MEDS: pantoprazole DR 40 mg Tablet PO (08:49)
[2019-08-08] MEDS: duloxetine 20 mg Capsule PO ×2 (08:49→17:51)
[2019-08-08] MEDS: aspirin 325 mg Tablet PO (08:49)
[2019-08-08] MEDS: ferrous sulfate EC 325 mg Tablet PO (08:49)
[2019-08-08] MEDS: pregabalin 75 mg Capsule PO ×2 (08:50→17:51)
--- NOTE | 2019-08-08 09:40 | PC.SOCIAL ---
Pg 2 IMM Explained to pt Pg 2 IMM. Pt verbally understands & signed. Provided a copy to pt & left on pt's bedside table. Signed, dated, & timed, then placed in chart.
[2019-08-08] MEDS: acetaminophen 325 mg Tablet 650 MG PO (10:54)
[2019-08-08 11:21] LABS: Glucose Point of Care 169 mg/dL (70-110)
--- NOTE | 2019-08-08 11:31 | P.PN_ITS ---
Subjective Subjective: Interval history: AM labs noted. Had 500 mL urine output overnight. Has been weaned off Levophed as of this AM with stable BP. Continues to work well with PT. No more oozing from paracentesis site but has some from penile area at Lanza catheter insertion site. Will hold Lovenox for now. Hemoglobin is stable at 12.9. Medications: Reviewed: Yes Medication Review Details: Current Medications Generic Name Dose Route Start Last Admin Trade Name Freq PRN Reason Stop Dose Admin Acetaminophen 650 mg 08/05/19 02:12 08/08/19 10:54 Tylenol PO 650 mg Q6H PRN Administration Mild/Mod Pain Or Temp >/= 101 Albuterol/Ipratrop ium 3 ml 08/05/19 04:00 08/08/19 08:52 Duoneb INHALATION 3 ml Q4H.RESPIRATORY S CH Administration Aspirin 325 mg 08/05/19 09:00 08/08/19 08:49 Aspirin PO 325 mg DAILY EARL Administration Atorvastatin Calci um 40 mg 08/06/19 09:00 08/08/19 08:49 Lipitor PO 40 mg DAILY EARL Administration Bumetanide 1 mg 08/05/19 09:00 08/05/19 22:13 Bumex IV Not Given Q12H EARL Carvedilol 6.25 mg 08/05/19 09:00 08/05/19 18:09 Coreg PO 6.25 mg BID EARL Administration Cyanocobalamin 500 mcg 08/05/19 09:00 08/08/19 11:22 Vitamin B-12 PO Not Given DAILY EARL Enoxaparin Sodium 80 mg 08/06/19 01:15 08/08/19 01:05 Lovenox SUBCUT Not Given Q12H EARL Ferrous Sulfate 325 mg 08/05/19 09:00 08/08/19 08:49 Ferrous Sulfate PO 325 mg DAILY EARL Administration Fluticasone Propio manjula 1 spray 08/07/19 13:10 08/08/19 08:49 Flonase NASAL 1 spray BID EARL Administration Furosemide 40 mg 08/05/19 02:12 08/05/19 16:03 Lasix IVP 40 mg Q12H EARL Administration Norepinephrine Bit artrate 4 mg 254 mls @ 0 mls/h r 08/05/19 23:00 08/08/19 05:59 / Dextrose IV 0.5 mcg/min .Q0M EARL 1.9 mls/hr Titration Protocol Per Protocol Insulin Aspart 0 unit 08/05/19 08:00 08/08/19 08:50 Novolog SUBCUT 2 unit TIDWM EARL Administration Protocol Losartan Potassium 50 mg 08/05/19 08:00 08/06/19 17:46 Cozaar PO Not Given BIDWM EARL Metolazone 5 mg 08/05/19 09:00 08/05/19 09:37 Zaroxolyn PO 5 mg DAILY EARL Administration Morphine Sulfate 1 mg 08/05/19 04:33 08/05/19 05:22 Morphine IVP 1 mg Q4H PRN Administration SEVERE PAIN Pantoprazole Sodiu m 40 mg 08/05/19 09:00 08/08/19 08:49 Protonix PO 40 mg DAILY EARL Administration Vitals/I&O/Wt Last Vital Signs Temp 98.2 F 08/08/19 08:00 Pulse 98 08/08/19 08:59 Resp 16 08/08/19 08:52 BP 107/93 08/08/19 08:00 Pulse Ox 98 08/08/19 08:52 08/07/19 08/08/19 08/08/19 22:59 06:59 14:59 Intake Total 240 / 1093.872 57.443 / 1151.315 240 / 240 Output Total 300 / 300 500 / 800 Balance -60 / 793.872 -442.557 / 351.315 240 / 240 Physical Exam Const: COMMON NORMALS: no apparent distress and oriented x3 GENERAL APPEARANCE: cooperative and frail appearing; not comfortable ORIENTATION/CONSCIOUSNESS: Yes awake HENMT: COMMON NORMALS: normocephalic, head/scalp atraumatic, hearing grossly normal bilaterally and moist oral mucous membranes HEAD & SCALP: normocephalic and atraumatic Eye: COMMON NORMALS: PERRL, EOMs intact bilaterally and conjunctivae normal CONJUNCTIVA: Yes conjunctivae normal PUPIL: Yes PERRL Neck/C-Spine: COMMON NORMALS: full ROM GENERAL: Yes normal visual inspection and Yes trachea midline Resp: COMMON NORMALS: normal respiratory effort, no retractions, no use of accessory muscles and clear to auscultation bilaterally EFFORT & INSPECTION: Yes able to speak in complete sentences, Yes symmetric chest movement and No tachypneic AUSCULTATION: clear to auscultation bilaterally OTHER: -on 2 L NC Cardio: COMMON NORMALS: regular rate, regular rhythm, S1 normal heart sound, S2 normal heart sound and no murmurs RATE: regular rate RHYTHM: regular rhythm HEART SOUNDS: S1 normal and S2 normal GI: COMMON NORMALS: soft to palpation and non-tender INSPECTION: Yes abdominal distension AUSCULTATION: Yes normoactive bowel sounds PALPATION: Yes soft OTHER: -pressure dressing in place over lower abdomen (clean/dry) : BLADDER/KIDNEY EXAM: Yes catheter in place OTHER: -some oozing noted at penile area at Lanza catheter insertion site; dressings in place Back/Pelvis: COMMON NORMALS: thoracic and lumbar spine normal to inspection Extremity: COMMON NORMALS: normal to inspection, full ROM and no clubbing, cyanosis or edema; negative for no pedal edema Neuro: COMMON NORMALS: oriented x3, moves all extremities, no focal motor deficits and no sensory deficits noted Psych: COMMON NORMALS: mental status grossly normal, thought process normal, cooperative, affect normal and speech normal SPEECH: Yes normal speech THOUGHT PROCESS: normal thought process Skin: COMMON NORMALS: no rashes or lesions noted, no jaundice, no petechiae and no mottling GENERAL SKIN EXAM: no rashes or lesions noted Urinary Catheter Management^: Lanza: Cath Placed During This Visit: yes Urethral Indwelling: Yes Reason for Continuing Indwelling Catheter: Accurate Measurement of Urinary Output in Critically Ill Patients Urinary Catheter Date of Insertion: 08/06/19 Urinary Catheter Time of Insertion: 02:41 Data : 08/08/19 04:40 08/08/19 04:40 Micro: Microbiology 08/06/19 14:20 Gram Stain - Final Ascites Fluid Body Fluid Culture - Preliminary A&P Assessment and plan (1) Acute respiratory failure with hypoxia: -secondary to 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 Patient may be started on Sildenafil once BP improves -CXR-small L pleural effusion, CTA negative for PE, showing evidence of L pleural effusion, possible pulmonary HTN -supplemental oxygen as needed; monitor respiratory status. 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 Huff -L carotid stenosis s/p CEA with angioplasty -Hyperlipidemia -NSTEMI; likely type II; troponins reviewed, delta of 4. Cardiology consult appreciated; medical management. Hold Lovenox due to continued oozing from penile area -Moderate pulmonary HTN -Liver cirrhosis with moderate ascites on abdomen US; paracentesis done for therapeutic and diagnostic purposes; removal of 4.5 L with noted symptomatic improvement. Fluid analysis noted and not consistent with SBP; gram stain +WBCs, no organisms, no growth on culture so far -continue meds as ordered -GI ppx with PPI -DVT ppx not needed as on full dose ASA, therapeutic Lovenox -Dispo: SNF; [facility] -Code status: LIMITED, no CPR or intubation -transfer to CSU for continued care once bed available Attestations Medical Necessity Statement*: Patient requires hospitalization for continued management of NSTEMI, pulmonary HTN; pending medication optimization. Time Spent in Patient Care: Greater than 35 minutes (>than 50% of time spent in counselling and/or direct pt care on unit) . Coding Level of Care Code Acute Financial Services Manager for vickie Fwd Exam Problem Focused Diagnoses Acute respiratory failure with hypoxia J96.01 Frequent falls R29.6
--- NOTE | 2019-08-08 11:42 | PC.CHAP ---
Pastoral Care Encounter/Spiritual Assessment Type of Contact [] Declined marketing team lead visit [] Patient/Family/Request visit [] Outpatient visit [] Follow-up visit [] Physician referral [] Code/Alert [x] Routine visit [] Staff referral [] Actively dying [] Patient sleeping [] Family support [] [] Out of room [] Palliative care [] [] Receiving care in room [] Pre-surgical visit [] Trauma [] Long length of stay [x] ICU visit [] Other: Relational/Emotional Strength [x] Patient feels connected with others/family/visitors/staff [] Distress [] Loneliness/isolation [] Abandonment Spirituality of Patient [x] Person of Kathleen [x] Attends Latter Day of their Kathleen [x] Believes in Prayer [] Reads Bible or Yarsani materials [] There are Spiritual issues to be addressed Carpentry Professional Interventions [x] Prayer [] Active listening [] Non-anxious presence [] Spiritual/emotional support [] Crisis/trauma care [] Spiritual counseling [] Bereavement support [] Provided bereavement packet [] Provided Bible/devotional materials [] Provided toy/stuffed animal, coloring book to patient or family member [] Provided Communion [] Anointing/[place] [] Salvation [] Completed spiritual assessment [] Other: Impact on Illness or Injury [] Angry [] Fearful [] Anxious [] Often cries [] Exhaustion [] Unable to work [] Unable to attend zoroastrianism [] Unable to walk/stand [] Unable to read [] Unable to drive [] Unable to eat/drink [] Unable to sleep [] Unable to be with family [] Patient intubated [] Other: Summary family present with patient. Patient improving. Time spent with patient 10 min
--- NOTE | 2019-08-08 14:17 | PC.OT ---
OT TREATMENT ATTEMPTED. PATIENT IS SLEEPING SOUNDLY. FAMILY REQUESTS TO ALLOW PATIENT TO SLEEP HE HAS JUST RETURNED TO BED AFTER BEING UP FOR QUIET A WHILE TODAY. WILL ATTEMPT TREATMENT AGAIN TOMORROW.
--- NOTE | 2019-08-08 15:13 | PC.NURSE ---
Per Dr. Johnson. Lovenox on hold today due to patient's bleeing around saul catheter.
[2019-08-08 17:59] LABS: Glucose Point of Care 99 mg/dL (70-110)
--- NOTE | 2019-08-08 20:28 | P.PN_ITS ---
Subjective Subjective: Interval history: Patient was walking around today. Vitals/I&O/Wt Last Vital Signs Temp 98.7 F 08/08/19 20:17 Pulse 73 08/08/19 20:17 Resp 25 H 08/08/19 20:17 BP 96/67 08/08/19 20:17 Pulse Ox 95 08/08/19 20:17 08/08/19 08/08/19 08/08/19 06:59 14:59 22:59 Intake Total 57.443 / 1151.315 720 / 720 220 / 940 Output Total 500 / 800 540 / 540 Balance -442.557 / 351.315 720 / 720 -320 / 400 Physical Exam Narrative: EXAM NARRATIVE: GENERAL: Patient is alert, awake and oriented x3. NECK: No jugular vein distension. HEENT: No cyanosis. No icterus. No pallor. HEART: Regular S1 and S2. No murmur, rub or gallop. LUNGS: Mild crackle bilaterally. ABDOMEN: Soft, nontender and nondistended. Positive bowel sounds. No guarding, rebound or tenderness. CENTRAL NERVOUS SYSTEM: Grossly nonfocal. EXTREMITIES: Lower extremities without edema bilaterally. Urinary Catheter Management^: Lanza: Cath Placed During This Visit: yes Urethral Indwelling: Yes Reason for Continuing Indwelling Catheter: Accurate Measurement of Urinary Output in Critically Ill Patients Urinary Catheter Date of Insertion: 08/06/19 Urinary Catheter Time of Insertion: 02:41 Data : 08/08/19 04:40 08/08/19 04:40 Micro: Microbiology 08/06/19 14:20 Gram Stain - Final Ascites Fluid Body Fluid Culture - Preliminary A&P Assessment and plan (1) Abdominal distention: Improved. Abdomen is soft. We will resume diuresis from Status: Acute Code(s): R14.0 - Abdominal distension (gaseous) (2) Hypotension: Improved, patient is off pressors Status: Acute Code(s): I95.9 - Hypotension, unspecified (3) Pulmonary hypertension: Once blood pressure is stable I will add isosorbide mononitrate or sildenafil Status: Acute Code(s): I27.20 - Pulmonary hypertension, unspecified (4) NSTEMI (non-ST elevated myocardial infarction): Type II. Stable Status: Acute Code(s): I21.4 - Non-ST elevation (NSTEMI) myocardial infarction [facility] Necessity Statement*: As per medicine Coding Level of Care Code Established Pt Acute Bmw Service Technician for Chg Fwd Patient Type Established History Expanded Problem Focused Exam Expanded Problem Focused Medical Decision Making Moderate Complexity Diagnoses Abdominal distention R14.0 Hypotension I95.9 Pulmonary hypertension I27.20 NSTEMI (non-ST elevated myocardial infarction) I21.4
[2019-08-09] VITALS (26 sets, daily range): BP systolic 85–135; BP diastolic 42–81; PULSE 74–102; RESP 15–30; TEMP 36.4; O2SAT 30–100
[2019-08-09] MEDS: ipratropium-albuterol 3 mL Neb INHALATION ×4 (03:20→19:15)
[2019-08-09 05:39] LABS: Anion Gap 12.6 (5-19); Blood Urea Nitrogen 39 mg/dL (8-23); Carbon Dioxide 30 mmol/L (22-29); Chloride 94 mmol/L (98-107); Glucose 148 mg/dL (65-115); Osmolality Calculated 274 mOsm/kg (285-295); Potassium 4.6 mmol/L (3.5-5.1); Sodium 132 mmol/L (136-145)
[2019-08-09 07:47] LABS: Glucose Point of Care 144 mg/dL (70-110)
[2019-08-09] MEDS: cyanocobalamin 1,000 mcg Tablet 500 MCG PO (08:45)
[2019-08-09] MEDS: aspirin 325 mg Tablet PO (08:45)
[2019-08-09] MEDS: pantoprazole DR 40 mg Tablet PO (08:46)
[2019-08-09] MEDS: atorvastatin 40 mg Tablet PO (08:46)
[2019-08-09] MEDS: duloxetine 20 mg Capsule PO ×2 (08:46→17:47)
[2019-08-09] MEDS: fluticasone nasal spray 16gm Btl 1 SPRAY NASAL ×2 (08:46→17:47)
[2019-08-09] MEDS: ferrous sulfate EC 325 mg Tablet PO (08:46)
--- NOTE | 2019-08-09 08:49 | PC.CHAP ---
Pastoral Care Encounter/Spiritual Assessment Type of Contact [] Declined seasonal tax preparer visit [] Patient/Family/Request visit [] Outpatient visit [] Follow-up visit [] Physician referral [] Code/Alert [x] Routine visit [] Staff referral [] Actively dying [] Patient sleeping [] Family support [] [] Out of room [] Palliative care [] [] Receiving care in room [] Pre-surgical visit [] Trauma [] Long length of stay [x] ICU visit [] Other: Relational/Emotional Strength [x] Patient feels connected with others/family/visitors/staff [] Distress [] Loneliness/isolation [] Abandonment Spirituality of Patient [x] Person of Kathleen [x] Attends Congregational of their Kathleen [x] Believes in Prayer [] Reads Bible or Anglican materials [] There are Spiritual issues to be addressed Hog Pusher Interventions [x] Prayer [] Active listening [] Non-anxious presence [] Spiritual/emotional support [] Crisis/trauma care [] Spiritual counseling [] Bereavement support [] Provided bereavement packet [] Provided Bible/devotional materials [] Provided toy/stuffed animal, coloring book to patient or family member [] Provided Communion [] Anointing/[place] [] Salvation [x] Completed spiritual assessment [] Other: Impact on Illness or Injury [] Angry [] Fearful [] Anxious [] Often cries [] Exhaustion [] Unable to work [] Unable to attend congregation [] Unable to walk/stand [] Unable to read [] Unable to drive [] Unable to eat/drink [] Unable to sleep [] Unable to be with family [] Patient intubated [] Other: Summary patient delightful. Patient feeling stronger, looking forward to moving to second floor Time spent with patient 10min
--- NOTE | 2019-08-09 11:13 | P.PN_ITS ---
Subjective Subjective: Interval history: AM labs noted, had 600 mL urine output overnight. BP remains low normal. Patient seen and examined earlier this morning, is in good spirits, sitting in chair by bedside, continues to work well with therapy. Per nursing staff continues to have oozing from Lanza site. Lovenox remains on hold. Will discontinue Lanza catheter as he is more ambulatory. Medications: Reviewed: Yes Medication Review Details: Current Medications Generic Name Dose Route Start Last Admin Trade Name Freq PRN Reason Stop Dose Admin Acetaminophen 650 mg 08/05/19 02:12 08/08/19 10:54 Tylenol PO 650 mg Q6H PRN Administration Mild/Mod Pain Or Temp >/= 101 Albuterol/Ipratrop ium 3 ml 08/05/19 04:00 08/09/19 07:46 Duoneb INHALATION 3 ml Q4H.RESPIRATORY S CH Administration Aspirin 325 mg 08/05/19 09:00 08/09/19 08:45 Aspirin PO 325 mg DAILY EARL Administration Atorvastatin Calci um 40 mg 08/06/19 09:00 08/09/19 08:46 Lipitor PO 40 mg DAILY EARL Administration Bumetanide 1 mg 08/05/19 09:00 08/05/19 22:13 Bumex IV Not Given Q12H EARL Carvedilol 6.25 mg 08/05/19 09:00 08/05/19 18:09 Coreg PO 6.25 mg BID EARL Administration Cyanocobalamin 500 mcg 08/05/19 09:00 08/09/19 08:45 Vitamin B-12 PO 500 mcg DAILY EARL Administration Enoxaparin Sodium 80 mg 08/06/19 01:15 08/09/19 02:02 Lovenox SUBCUT Not Given Q12H EARL Ferrous Sulfate 325 mg 08/05/19 09:00 08/09/19 08:46 Ferrous Sulfate PO 325 mg DAILY EARL Administration Fluticasone Propio manjula 1 spray 08/07/19 13:10 08/09/19 08:46 Flonase NASAL 1 spray BID EARL Administration Furosemide 40 mg 08/05/19 02:12 08/05/19 16:03 Lasix IVP 40 mg Q12H EARL Administration Norepinephrine Bit artrate 4 mg 254 mls @ 0 mls/h r 08/05/19 23:00 08/08/19 05:59 / Dextrose IV 0.5 mcg/min .Q0M EARL 1.9 mls/hr Titration Protocol Per Protocol Insulin Aspart 0 unit 08/05/19 08:00 08/09/19 08:46 Novolog SUBCUT 2 unit TIDWM EARL Administration Protocol Losartan Potassium 50 mg 08/05/19 08:00 08/06/19 17:46 Cozaar PO Not Given BIDWM EARL Metolazone 5 mg 08/05/19 09:00 08/05/19 09:37 Zaroxolyn PO 5 mg DAILY EARL Administration Pantoprazole Sodiu m 40 mg 08/05/19 09:00 08/09/19 08:46 Protonix PO 40 mg DAILY EARL Administration Vitals/I&O/Wt Last Vital Signs Temp 98.7 F 08/08/19 20:17 Pulse 101 H 08/09/19 08:34 Resp 17 08/09/19 08:34 BP 86/69 08/09/19 08:34 Pulse Ox 100 08/09/19 08:34 08/08/19 08/09/19 08/09/19 22:59 06:59 14:59 Intake Total 460 / 1180 Output Total 540 / 540 600 / 1140 Balance -80 / 640 -600 / 40 Physical Exam Const: COMMON NORMALS: no apparent distress and oriented x3 GENERAL APPEARANCE: cooperative, comfortable and frail appearing ORIENTA TION/CONSCIOUSNESS: Yes awake HENMT: COMMON NORMALS: normocephalic, head/scalp atraumatic, hearing grossly normal bilaterally and moist oral mucous membranes HEAD & SCALP: normocephal ic and atraumatic Eye: COMMON NORMALS: PERRL, EOMs intact bilaterally and conjunctivae normal CONJUNCTIVA: Yes conjunctivae normal PUPIL: Yes PERRL Neck/C-Spine: COMMON NORMALS: full ROM GENERAL: Yes normal visual inspection and Yes trachea midline Resp: COMMON NORMALS: normal respiratory effort, no retractions, no use of accessory muscles and clear to auscultation bilaterally EFFORT & INSPECTION: Yes able to speak in complete sentences, Yes symmetric chest movement and No tachypneic AUSCULTATION: clear to auscultation bilaterally OTHER: -on 2 L NC Cardio: COMMON NORMALS: regular rate, regular rhythm, S1 normal heart sound, S2 normal heart sound and no murmurs RATE: regular rate RHYTHM: regular rhythm HEART SOUNDS: S1 normal and S2 normal GI: COMMON NORMALS: soft to palpation and non-tender AUSCULTATION: Yes normoactive bowel sounds PALPATION: Yes soft OTHER: -pressure dressing in place over lower abdomen (clean/dry) : BLADDER/KIDNEY EXAM: Yes catheter in place OTHER: -some oozing noted at penile area at Lanza catheter insertion site; dressings in place Back/Pelvis: COMMON NORMALS: thoracic and lumbar spine normal to inspection Extremity: COMMON NORMALS: normal to inspection, full ROM and no clubbing, cyanosis or edema; negative for no pedal edema Neuro: COMMON NORMALS: oriented x3, moves all extremities, no focal motor deficits and no sensory deficits noted Psych: COMMON NORMALS: mental status grossly normal, thought process normal, cooperative, affect normal and speech normal SPEECH: Yes normal speech THOUGHT PROCESS: normal thought process Skin: COMMON NORMALS: no rashes or lesions noted, no jaundice, no petechiae and no mottling GENERAL SKIN EXAM: no rashes or lesions noted Urinary Catheter Management^: Lanza: Cath Placed During This Visit: yes Urethral Indwelling: Yes Reason for Continuing Indwelling Catheter: Accurate Measurement of Urinary Output in Critically Ill Patients Urinary Catheter Date of Insertion: 08/06/19 Urinary Catheter Time of Insertion: 02:41 Data : 08/08/19 04:40 08/09/19 04:55 Micro: Microbiology 08/06/19 14:20 Gram Stain - Final Ascites Fluid Body Fluid Culture - Final A&P Assessment and plan (1) Acute respiratory failure with hypoxia: -secondary to 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 Patient may be started on Sildenafil once BP improves -CXR-small L pleural effusion, CTA negative for PE, showing evidence of L pleural effusion, possible pulmonary HTN -supplemental oxygen as needed; monitor respiratory status. 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 Huff -Eriberto carotid stenosis s/p CEA with angioplasty -Hyperlipidemia -NSTEMI; likely type II; troponins reviewed, delta of 4. Cardiology consult appreciated; medical management. Hold Lovenox due to continued oozing from penile area -Moderate pulmonary HTN -Liver cirrhosis with moderate ascites on abdomen US; paracentesis done for therapeutic and diagnostic purposes; removal of 4.5 L with noted symptomatic improvement. Fluid analysis noted and not consistent with SBP; gram stain +WBCs, no organisms, no growth on culture so far -continue meds as ordered -GI ppx with PPI -DVT ppx not needed as on full dose ASA, therapeutic Lovenox (on hold due to oozing from catheter site) -will discontinue Lanza catheter -Dispo: SNF; [facility] choice [facility] -Code status: LIMITED, no CPR or intubation -transfer to CSU for continued care once bed available Attestations Medical Necessity Statement*: Patient requires hospitalization for continued medication optimization pending BP improvement as well as appropriate disposition. Time Spent in Patient Care: Greater than 35 minutes (>than 50% of time spent in counselling and/or direct pt care on unit) . Coding Level of Care Code Acute Wrapper Hands Sprayer for Doc Fwd Exam Problem Focused Diagnoses Acute respiratory failure with hypoxia J96.01 Frequent falls R29.6
[2019-08-09 13:11] LABS: Glucose Point of Care 178 mg/dL (70-110)
[2019-08-09] MEDS: pregabalin 75 mg Capsule PO (19:21)
--- NOTE | 2019-08-09 19:34 | PC.NURSE ---
10 cc removed from bulb. Urinary catheter removed. Catheter intact. Andra area cleansed. Patient tolerated procedure well.
--- NOTE | 2019-08-09 20:11 | P.PN_ITS ---
Subjective Subjective: Interval history: Patient is off pressors now. Overall feeling better. Medications: Reviewed: Yes Medication Review Details: Current Medications Generic Name Dose Route Start Last Admin Trade Name Freq PRN Reason Stop Dose Admin Acetaminophen 650 mg 08/05/19 02:12 08/08/19 10:54 Tylenol PO 650 mg Q6H PRN Administration Mild/Mod Pain Or Temp >/= 101 Albuterol/Ipratrop ium 3 ml 08/05/19 04:00 08/09/19 07:46 Duoneb INHALATION 3 ml Q4H.RESPIRATORY S CH Administration Aspirin 325 mg 08/05/19 09:00 08/09/19 08:45 Aspirin PO 325 mg DAILY EARL Administration Atorvastatin Calci um 40 mg 08/06/19 09:00 08/09/19 08:46 Lipitor PO 40 mg DAILY EARL Administration Bumetanide 1 mg 08/05/19 09:00 08/05/19 22:13 Bumex IV Not Given Q12H EARL Carvedilol 6.25 mg 08/05/19 09:00 08/05/19 18:09 Coreg PO 6.25 mg BID EARL Administration Cyanocobalamin 500 mcg 08/05/19 09:00 08/09/19 08:45 Vitamin B-12 PO 500 mcg DAILY EARL Administration Enoxaparin Sodium 80 mg 08/06/19 01:15 08/09/19 02:02 Lovenox SUBCUT Not Given Q12H EARL Ferrous Sulfate 325 mg 08/05/19 09:00 08/09/19 08:46 Ferrous Sulfate PO 325 mg DAILY EARL Administration Fluticasone Propio manjula 1 spray 08/07/19 13:10 08/09/19 08:46 Flonase NASAL 1 spray BID EARL Administration Furosemide 40 mg 08/05/19 02:12 08/05/19 16:03 Lasix IVP 40 mg Q12H EARL Administration Norepinephrine Bit artrate 4 mg 254 mls @ 0 mls/h r 08/05/19 23:00 08/08/19 05:59 / Dextrose IV 0.5 mcg/min .Q0M EARL 1.9 mls/hr Titration Protocol Per Protocol Insulin Aspart 0 unit 08/05/19 08:00 08/09/19 08:46 Novolog SUBCUT 2 unit TIDWM EARL Administration Protocol Losartan Potassium 50 mg 08/05/19 08:00 08/06/19 17:46 Cozaar PO Not Given BIDWM EARL Metolazone 5 mg 08/05/19 09:00 08/05/19 09:37 Zaroxolyn PO 5 mg DAILY EARL Administration Pantoprazole Sodiu m 40 mg 08/05/19 09:00 08/09/19 08:46 Protonix PO 40 mg DAILY EARL Administration Vitals/I&O/Wt Last Vital Signs Temp 97.5 F L 08/09/19 17:00 Pulse 98 08/09/19 19:17 Resp 16 08/09/19 19:17 BP 135/81 08/09/19 19:00 Pulse Ox 98 08/09/19 19:17 08/09/19 08/09/19 08/09/19 06:59 14:59 22:59 Intake Total 200 / 200 100 / 300 Output Total 600 / 1140 1000 / 1000 Balance -600 / 40 200 / 200 -900 / -700 Physical Exam Narrative: EXAM NARRATIVE: GENERAL: Patient is alert, awake and oriented x3. NECK: No jugular vein distension. HEENT: No cyanosis. No icterus. No pallor. HEART: Regular S1 and S2. No murmur, rub or gallop. LUNGS: Mild crackle bilaterally. ABDOMEN: Soft, nontender and nondistended. Positive bowel sounds. No guarding, rebound or tenderness. CENTRAL NERVOUS SYSTEM: Grossly nonfocal. EXTREMITIES: Lower extremities without edema bilaterally. Urinary Catheter Management^: Lanza: Cath Placed During This Visit: yes Urethral Indwelling: Yes Reason for Continuing Indwelling Catheter: Accurate Measurement of Urinary Output in Critically Ill Patients Urinary Catheter Date of Insertion: 08/06/19 Urinary Catheter Time of Insertion: 02:41 Data : 08/08/19 04:40 08/09/19 04:55 Micro: Microbiology 08/06/19 14:20 Gram Stain - Final Ascites Fluid Body Fluid Culture - Final A&P Assessment and plan (1) Abdominal distention: Continue to improve. Status: Acute Code(s): R14.0 - Abdominal distension (gaseous) (2) Hypotension: Continue to improve. We will restart by mouth Lasix Status: Acute Code(s): I95.9 - Hypotension, unspecified (3) Pulmonary hypertension: Once blood pressure is stable I will add isosorbide mononitrate or sildenafil Status: Acute Code(s): I27.20 - Pulmonary hypertension, unspecified (4) NSTEMI (non-ST elevated myocardial infarction): Type II. Stable Status: Acute Code(s): I21.4 - Non-ST elevation (NSTEMI) myocardial infarction Attestations Medical Necessity Statement*: Required continuation hospitalization for above defined care. Coding Level of Care Code Acute Salesperson Art Objects for Chg Fwd History Expanded Problem Focused Exam Expanded Problem Focused Medical Decision Making Moderate Complexity Diagnoses Abdominal distention R14.0 Hypotension I95.9 Pulmonary hypertension I27.20 NSTEMI (non-ST elevated myocardial infarction) I21.4
[2019-08-10] VITALS (34 sets, daily range): BP systolic 86–138; BP diastolic 53–92; PULSE 71–105; RESP 13–29; TEMP 36.6–36.8; O2SAT 91–99
[2019-08-10] MEDS: ipratropium-albuterol 3 mL Neb INHALATION ×5 (00:24→20:00)
[2019-08-10 07:55] LABS: Glucose Point of Care 158 mg/dL (70-110)
[2019-08-10] MEDS: pantoprazole DR 40 mg Tablet PO (08:43)
[2019-08-10] MEDS: duloxetine 20 mg Capsule PO ×2 (08:43→16:59)
[2019-08-10] MEDS: pregabalin 75 mg Capsule PO ×2 (08:43→17:00)
[2019-08-10] MEDS: ferrous sulfate EC 325 mg Tablet PO (08:43)
[2019-08-10] MEDS: aspirin 325 mg Tablet PO (08:43)
[2019-08-10] MEDS: cyanocobalamin 1,000 mcg Tablet 500 MCG PO (08:43)
[2019-08-10] MEDS: atorvastatin 40 mg Tablet PO (08:43)
[2019-08-10] MEDS: fluticasone nasal spray 16gm Btl 1 SPRAY NASAL ×2 (08:44→16:57)
--- NOTE | 2019-08-10 09:24 | PC.SOCIAL ---
IMM Update Pg 2 of IMM given and explained to patient who verbalized understanding. Copy provided to patient.
--- NOTE | 2019-08-10 09:37 | P.PN_ITS ---
Subjective Subjective: Interval history: BP stable though still low normal, had 300 mL urine output overnight. Resting in bed currently, family at bedside, seems more tired today and reports not feeling quite as well as he did yesterday. Declined to work with therapy this morning but worked well with them in the afternoon. Case discussed briefly with Dr. Huff, will start on low-dose Aldactone and continue to monitor blood pressure closely. Lanza catheter discontinued and patient has been able to void, urine has been clear of blood. Medications: Reviewed: Yes Medication Review Details: Current Medications Generic Name Dose Route Start Last Admin Trade Name Freq PRN Reason Stop Dose Admin Acetaminophen 650 mg 08/05/19 02:12 08/08/19 10:54 Tylenol PO 650 mg Q6H PRN Administration Mild/Mod Pain Or Temp >/= 101 Albuterol/Ipratrop ium 3 ml 08/05/19 04:00 08/10/19 09:09 Duoneb INHALATION 3 ml Q4H.RESPIRATORY S CH Administration Aspirin 325 mg 08/05/19 09:00 08/10/19 08:43 Aspirin PO 325 mg DAILY EARL Administration Atorvastatin Calci um 40 mg 08/06/19 09:00 08/10/19 08:43 Lipitor PO 40 mg DAILY EARL Administration Carvedilol 6.25 mg 08/05/19 09:00 08/05/19 18:09 Coreg PO 6.25 mg BID EARL Administration Cyanocobalamin 500 mcg 08/05/19 09:00 08/10/19 08:43 Vitamin B-12 PO 500 mcg DAILY EARL Administration Enoxaparin Sodium 80 mg 08/06/19 01:15 08/10/19 01:35 Lovenox SUBCUT Not Given Q12H EARL Ferrous Sulfate 325 mg 08/05/19 09:00 08/10/19 08:43 Ferrous Sulfate PO 325 mg DAILY EARL Administration Fluticasone Propio manjula 1 spray 08/07/19 13:10 08/10/19 08:44 Flonase NASAL 1 spray BID EARL Administration Norepinephrine Bit artrate 4 mg 254 mls @ 0 mls/h r 08/05/19 23:00 08/08/19 05:59 / Dextrose IV 0.5 mcg/min .Q0M EARL 1.9 mls/hr Titration Protocol Per Protocol Insulin Aspart 0 unit 08/05/19 08:00 08/10/19 08:44 Novolog SUBCUT 2 unit TIDWM EARL Administration Protocol Losartan Potassium 50 mg 08/05/19 08:00 08/06/19 17:46 Cozaar PO Not Given BIDWM EARL Metolazone 5 mg 08/05/19 09:00 08/05/19 09:37 Zaroxolyn PO 5 mg DAILY EARL Administration Pantoprazole Sodiu m 40 mg 08/05/19 09:00 08/10/19 08:43 Protonix PO 40 mg DAILY EARL Administration Vitals/I&O/Wt Last Vital Signs Temp 97.5 F L 08/09/19 17:00 Pulse 97 08/10/19 09:13 Resp 16 08/10/19 09:10 BP 115/67 08/10/19 09:00 Pulse Ox 95 08/10/19 09:10 08/09/19 08/10/19 08/10/19 22:59 06:59 14:59 Intake Total 340 / 540 300 / 300 Output Total 1000 / 1000 300 / 1300 200 / 200 Balance -660 / -460 -300 / -760 100 / 100 Physical Exam Const: COMMON NORMALS: no apparent distress and oriented x3 GENERAL APPEARANCE: cooperative, comfortable and frail appearing ORIENTATION/CONSCIOUSNESS: Yes awake HENMT: COMMON NORMALS: normocephalic, head/scalp atraumatic, hearing grossly normal bilaterally and moist oral mucous membranes HEAD & SCALP: normocephalic and atraumatic Eye: COMMON NORMALS: PERRL, EOMs intact bilaterally and conjunctivae normal CONJUNCTIVA: Yes conjunctivae normal PUPIL: Yes PERRL Neck/C-Spine: COMMON NORMALS: full ROM GENERAL: Yes normal visual inspection and Yes trachea midline Resp: COMMON NORMALS: normal respiratory effort, no retractions, no use of accessory muscles and clear to auscultation bilaterally EFFORT & INSPECTION: Yes able to speak in complete sentences, Yes symmetric chest movement and No tachypneic AUSCULTATION: clear to auscultation bilaterally OTHER: -on 1 L NC Cardio: COMMON NORMALS: regular rate, regular rhythm, S1 normal heart sound and S2 normal heart sound RATE: regular rate RHYTHM: regular rhythm HEART SOUNDS: S1 normal, S2 normal and murmur systolic GI: COMMON NORMALS: soft to palpation and non-tender AUSCULTATION: Yes normoactive bowel sounds PALPATION: Yes soft : BLADDER/KIDNEY EXAM: No catheter in place Back/Pelvis: COMMON NORMALS: thoracic and lumbar spine normal to inspection Extremity: COMMON NORMALS: normal to inspection, full ROM and no clubbing, cyanosis or edema; negative for no pedal edema Neuro: COMMON NORMALS: oriented x3, moves all extremities, no focal motor deficits and no sensory deficits noted Psych: COMMON NORMALS: mental status grossly normal, thought process normal, cooperative, affect normal and speech normal SPEECH: Yes normal speech THOUGHT PROCESS: normal thought process Skin: COMMON NORMALS: no rashes or lesions noted, no jaundice, no petechiae and no mottling GENERAL SKIN EXAM: no rashes or lesions noted Urinary Catheter Management^: Lanza: Cath Placed During This Visit: yes Urethral Indwelling: Yes Reason for Continuing Indwelling Catheter: Accurate Measurement of Urinary Output in Critically Ill Patients Urinary Catheter Date of Insertion: 08/06/19 Urinary Catheter Time of Insertion: 02:41 Data : 08/08/19 04:40 08/09/19 04:55 Micro: Microbiology 08/04/19 21:52 Blood Culture - Final Blood NO GROWTH AFTER 5 DAYS 08/04/19 21:48 Blood Culture - Final Blood NO GROWTH AFTER 5 DAYS 08/06/19 14:20 Gram Stain - Final Ascites Fluid Body Fluid Culture - Final A&P Assessment and plan (1) Acute respiratory failure with hypoxia: -secondary to 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 Patient may be started on Sildenafil once BP improves -CXR-small L pleural effusion, CTA negative for PE, showing evidence of L pleural effusion, possible pulmonary HTN -supplemental oxygen as needed; monitor respiratory status. 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 Huff -L carotid stenosis s/p CEA with angioplasty -Hyperlipidemia -NSTEMI; likely type II; troponins reviewed, delta of 4. Cardiology consult appreciated; medical management. Hold Lovenox due to continued oozing from penile area -Moderate pulmonary HTN -Liver cirrhosis with moderate ascites on abdomen US; paracentesis done for therapeutic and diagnostic purposes; removal of 4.5 L with noted symptomatic improvement. Fluid analysis noted and not consistent with SBP; gram stain +WBCs, no organisms, no growth on culture so far, cytology negative -continue meds as ordered -GI ppx with PPI -DVT ppx not needed as on full dose ASA, therapeutic Lovenox (on hold due to oozing from catheter site) -will discontinue Lanza catheter -Dispo: SNF; [facility] choice [facility] -Code status: LIMITED, no CPR or intubation -transfer to CSU for continued care once bed available Attestations Medical Necessity Statement*: Patient requires hospitalization for continued optimization of medication based on blood pressure. Time Spent in Patient Care: Greater than 35 minutes (>than 50% of time spent in counselling and/or direct pt care on unit) . Coding Level of Care Code Acute Hazardous Materials Tanker Driver for Doc Solo Exam Problem Focused Diagnoses Acute respiratory failure with hypoxia J96.01 Frequent falls R29.6
[2019-08-10] MEDS: FUROsemide 40 mg Tablet PO (10:05)
[2019-08-10] MEDS: acetaminophen 325 mg Tablet 650 MG PO (10:05)
[2019-08-10 16:54] LABS: Glucose Point of Care 162 mg/dL (70-110)
[2019-08-10 22:01] LABS: Glucose Point of Care 195 mg/dL (70-110)
--- NOTE | 2019-08-10 22:11 | PC.NURSE ---
DR ERICKSON PT IV IN LEFT AC INFILTRATED. SITE WAS SWOLLEN AND RED, DR ACOSTA WAS TOLD ABOUT SITE DUE TO CONCERN FOR ANY INFECTION IN SITE. DR ACOSTA DETERMINED NO INFECTION TO BE SEEN FROM OUTSIDE. GAVE INSTRUCTION TO ELEVATE ARM AND APPLY WARM COMPRESSES TO IV SITE.
--- NOTE | 2019-08-10 22:13 | PM.EVENT ---
Event Note Event Note: Called with report that patient's IV site in the left upper extremity was infiltrated. IV was removed by nursing staff. They expressed concern about it exuding pus. On my examination, patient has clear area where the needle penetrated with some granulation tissue. Clear fluid is all that I see oozing from this. There is a approximately 3 cm x 4 cm area of induration that is tender but not fluctuant, warm or necrotic in appearance. There is some mild erythema around this. There is less erythema in the antecubital area around where the needle was inserted. There are no red streaks up or down the arm. Review of records shows that on August 08, patient had Levophed which was stopped that day and also had had some potassium infused at this site. Orders have been placed to keep the arm elevated and evaluate it at least every shift. I have also placed an order for some warm moist heat to the arm and for an ultrasound to be done. Ordered a CBC for in the morning. Reviewed with patient that this can happen when medicine infusing into an IV leaks from the vessel and causes irritation and occasionally some damage to the tissues in the area. Explained that it can take a while for this to go away up to possibly a couple of months for to go away completely. Explained that we will be getting an ultrasound in the morning, will keep the arm elevated and put compresses on it for now. He was given an opportunity to ask questions. Understood plan of care at this point in time.
--- NOTE | 2019-08-10 23:10 | PC.NURSE ---
BILATERAL LEGS ARE COLD TO TOUCH, PURPLE DISCOLORED. PT STATES THIS IS NORMAL FOR HIM. PULSES ARE BOTH PALPABLE.
--- NOTE | 2019-08-10 23:22 | PC.NURSE ---
WHEN GETTING UP TO USE BATHROOM PT STATED HE HAD ONE SHARP PAIN IN HIS CHEST. NO SHORTNESS OF BREATH NOTED. PT STATES PAIN DID NOT LAST, HE WAS EDUCATED TO TELL NURSE SOON HE HAS ANY MORE PAIN.
[2019-08-11] VITALS (33 sets, daily range): BP systolic 98–131; BP diastolic 58–95; PULSE 74–107; RESP 14–26; TEMP 36.1–37; O2SAT 90–100
[2019-08-11] MEDS: ipratropium-albuterol 3 mL Neb INHALATION ×7 (00:05→23:24)
[2019-08-11 05:21] LABS: Basophils % 0.1 %; Eosinophils # 0.2 10^3/uL (0.0-0.8); Eosinophils % 2.2 %; Hematocrit 40.2 % (42.0-52.0); Lymphocytes # 1.1 10^3/uL (0.8-4.8); Lymphocytes % 13.5 %; Mean Corpuscular HGB Conc 32.3 g/dL (30.0-36.0); Mean Corpuscular Hemoglobin 30.5 pg (28.0-34.0); Mean Corpuscular Volume 94.4 fL (80-94); Mean Platelet Volume 9.7 fL (7.4-10.4); Monocytes # 1.1 10^3/uL (0.2-0.9); Monocytes % 13.5 %; Neutrophils # 5.4 10^3/uL (1.8-7.7); Neutrophils % 70.1 %; Nucleated Red Blood Cells % 0 %; Platelet Count 187 10^3/cmm (130-400); Red Blood Count 4.26 10^6/uL (4.1-5.3); Red Cell Distribution Width 14.7 % (12.1-15.1); White Blood Count 7.8 10^3/uL (4.0-10.0)
--- NOTE | 2019-08-11 06:14 | PC.NURSE ---
SHIFT SUMMARY PT HAS NOT HAD ANY MORE COMPLAINTS OF CHEST OTHER THEN THE OTHER NOTED. PT HAS HAD ADEQUATE URINE OUTPUT. PT ABLE TO USE URINAL WITH ASSISSTANCE. PT IS IN CHAIR CURRENTLY. ARM REMAINS ELEVATED, PT COLOR OF LEGS IMPROVED WHILE IN BED AND WERE WARMER WELL, PULSES GOOD. CALL LIGHT WITHIN REACH. PT REMAINS ALERT AND ORIENTATED.
[2019-08-11] MEDS: fluticasone nasal spray 16gm Btl 1 SPRAY NASAL ×2 (08:43→17:37)
[2019-08-11] MEDS: duloxetine 20 mg Capsule PO ×2 (08:44→17:37)
[2019-08-11] MEDS: atorvastatin 40 mg Tablet PO (08:44)
[2019-08-11] MEDS: pantoprazole DR 40 mg Tablet PO (08:44)
[2019-08-11] MEDS: spironolactone 25 mg Tablet 12.5 MG PO (08:44)
[2019-08-11] MEDS: pregabalin 75 mg Capsule PO ×2 (08:44→17:37)
[2019-08-11] MEDS: aspirin 325 mg Tablet PO (08:44)
[2019-08-11] MEDS: ferrous sulfate EC 325 mg Tablet PO (08:44)
[2019-08-11 10:56] LABS: Glucose Point of Care 149 mg/dL (70-110)
--- NOTE | 2019-08-11 10:58 | PM.PN ---
Subjective Subjective: Interval history: Overnight noted to have infiltration of IV in left upper extremity. Ultrasound consistent with superficial thrombophlebitis, no DVT noted. Blood pressure has improved, will resume Coreg 6.25 mg twice daily. Had 525 mL urine output overnight, urine remains clear. Patient seen and examined, sitting in chair, is in good spirits, has left upper extremity elevated with warm compress over it. Medications: Reviewed: Yes Medication Review Details: Current Medications Generic Name Dose Route Start Last Admin Trade Name Freq PRN Reason Stop Dose Admin Acetaminophen 650 mg 08/05/19 02:12 08/10/19 10:05 Tylenol PO 650 mg Q6H PRN Administration Mild/Mod Pain Or Temp >/= 101 Albuterol/Ipratrop ium 3 ml 08/05/19 04:00 08/11/19 08:28 Duoneb INHALATION 3 ml Q4H.RESPIRATORY S [facility] Administration Aspirin 325 mg 08/05/19 09:00 08/11/19 08:44 Aspirin PO 325 mg DAILY [facility] Administration Atorvastatin Calci um 40 mg 08/06/19 09:00 08/11/19 08:44 Lipitor PO 40 mg DAILY [facility] Administration Carvedilol 6.25 mg 08/05/19 09:00 08/05/19 18:09 Coreg PO 6.25 mg BID [facility] Administration Cyanocobalamin 500 mcg 08/05/19 09:00 08/10/19 08:43 Vitamin B-12 PO 500 mcg DAILY [facility] Administration Enoxaparin Sodium 80 mg 08/06/19 01:15 08/10/19 20:33 Lovenox SUBCUT Not Given Q12H [facility] Ferrous Sulfate 325 mg 08/05/19 09:00 08/11/19 08:44 Ferrous Sulfate PO 325 mg DAILY [facility] Administration Fluticasone Propio manjula 1 spray 08/07/19 13:10 08/11/19 08:43 Flonase NASAL 1 spray BID [facility] Administration Insulin Aspart 0 unit 08/05/19 08:00 08/11/19 08:43 Novolog SUBCUT 2 unit TIDWM [facility] Administration Protocol Losartan Potassium 50 mg 08/05/19 08:00 08/06/19 17:46 Cozaar PO Not Given BIDWM [facility] Metolazone 5 mg 08/05/19 09:00 08/05/19 09:37 Zaroxolyn PO 5 mg DAILY [facility] Administration Pantoprazole Sodiu m 40 mg 08/05/19 09:00 08/11/19 08:44 Protonix PO 40 mg DAILY [facility] Administration Spironolactone 12.5 mg 08/11/19 09:00 08/11/19 08:44 Aldactone PO 12.5 mg DAILY [facility] Administration Vitals/I&O/Wt Last Vital Signs Temp 98.3 F 08/11/19 06:00 Pulse 102 H 08/11/19 08:33 Resp 18 08/11/19 08:30 BP 131/79 08/11/19 08:00 Pulse Ox 95 08/11/19 08:30 08/10/19 08/11/19 08/11/19 22:59 06:59 14:59 Intake Total 300 / 900 Output Total 825 / 1125 200 / 1325 Balance -525 / -225 -200 / -425 Physical Exam Const: COMMON NORMALS: no apparent distress and oriented x3 GENERAL APPEARANCE: cooperative, comfortable and frail appearing ORIENTATION/CONSCIOUSNESS: Yes awake HENMT: COMMON NORMALS: normocephalic, head/scalp atraumatic, hearing grossly normal bilaterally and moist oral mucous membranes HEAD & SCALP: normocephalic and atraumatic Eye: COMMON NORMALS: PERRL, EOMs intact bilaterally and conjunctivae normal CONJUNCTIVA: Yes conjunctivae normal PUPIL: Yes PERRL Neck/C-Spine: COMMON NORMALS: full ROM GENERAL: Yes normal visual inspection and Yes trachea midline Resp: COMMON NORMALS: normal respiratory effort, no retractions, no use of accessory muscles and clear to auscultation bilaterally EFFORT & INSPECTION: Yes able to speak in complete sentences, Yes symmetric chest movement and No tachypneic AUSCULTATION: clear to auscultation bilaterally OTHER: -on 1.5 L NC Cardio: COMMON NORMALS: regular rate, regular rhythm, S1 normal heart sound and S2 normal heart sound RATE: regular rate RHYTHM: regular rhythm HEART SOUNDS: S1 normal, S2 normal and murmur systolic GI: COMMON NORMALS: soft to palpation and non-tender INSPECTION: Yes abdominal distension AUSCULTATION: Yes normoactive bowel sounds PALPATION: Yes soft : BLADDER/KIDNEY EXAM: No catheter in place Back/Pelvis: COMMON NORMALS: thoracic and lumbar spine normal to inspection Extremity: COMMON NORMALS: normal to inspection, full ROM and no clubbing, cyanosis or edema; negative for no pedal edema Neuro: COMMON NORMALS: oriented x3, moves all extremities, no focal motor deficits and no sensory deficits noted Psych: COMMON NORMALS: mental status grossly normal, thought process normal, cooperative, affect normal and speech normal SPEECH: Yes normal speech THOUGHT PROCESS: normal thought process Skin: COMMON NORMALS: no rashes or lesions noted, no jaundice, no petechiae and no mottling GENERAL SKIN EXAM: no rashes or lesions noted Urinary Catheter Management^: Lanza: Cath Placed During This Visit: yes Urethral Indwelling: Yes Reason for Continuing Indwelling Catheter: Accurate Measurement of Urinary Output in Critically Ill Patients Urinary Catheter Date of Insertion: 08/06/19 Urinary Catheter Time of Insertion: 02:41 Data : 08/11/19 04:55 08/09/19 04:55 A&P Assessment and plan (1) Acute respiratory failure with hypoxia: -secondary to 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 Patient may be started on Sildenafil once BP improves -CXR-small L pleural effusion, CTA negative for PE, showing evidence of L pleural effusion, possible pulmonary HTN -supplemental oxygen as needed; monitor respiratory status. 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 Huff -Eriberto carotid stenosis s/p CEA with angioplasty -Hyperlipidemia -NSTEMI; likely type II; troponins reviewed, delta of 4. Cardiology consult appreciated; medical management. Hold Lovenox due to continued oozing from penile area -Moderate pulmonary HTN -Liver cirrhosis with moderate ascites on abdomen US; paracentesis done for therapeutic and diagnostic purposes; removal of 4.5 L with noted symptomatic improvement. Fluid analysis noted and not consistent with SBP; gram stain +WBCs, no organisms, no growth on culture so far, cytology negative -Left upper extremity superficial thrombophlebitis involving the left basilic vein; previous area of IV access now discontinued; no DVT per venous duplex. Left upper extremity elevation, warm compresses as tolerated -continue meds as ordered -GI ppx with PPI -DVT ppx not needed as on full dose ASA, therapeutic Lovenox (on hold due to oozing from catheter site) -discontinued Lanza catheter; has been able to void independently -Dispo: SNF; [facility] choice [facility] -Code status: LIMITED, no CPR or intubation -transfer to CSU for continued care once bed available Attestations Medical Necessity Statement*: Patient requires hospitalization for continued optimization of medications including gradual resumption of oral antihypertensives. Time Spent in Patient Care: Greater than 35 minutes (>than 50% of time spent in counselling and/or direct pt care on unit). Coding Level of Care Code Acute Telemarketing Manager for [facility] Exam Problem Focused Diagnoses Acute respiratory failure with hypoxia J96.01 Frequent falls R29.6
[2019-08-11 11:31] LABS: Glucose Point of Care 174 mg/dL (70-110)
[2019-08-11 17:13] LABS: Glucose Point of Care 195 mg/dL (70-110)
[2019-08-11 17:13] LABS: Glucose Point of Care 141 mg/dL (70-110)
[2019-08-11] MEDS: carvedilol 6.25 mg Tablet PO (17:37)
--- NOTE | 2019-08-11 20:33 | P.PN_ITS ---
Subjective Subjective: Interval history: Patient continues to improve blood pressure has improved overall feeling better Medications: Reviewed: Yes Medication Review Details: Current Medications Generic Name Dose Route Start Last Admin Trade Name Freq PRN Reason Stop Dose Admin Acetaminophen 650 mg 08/05/19 02:12 08/10/19 10:05 Tylenol PO 650 mg Q6H PRN Administration Mild/Mod Pain Or Temp >/= 101 Albuterol/Ipratrop ium 3 ml 08/05/19 04:00 08/11/19 08:28 Duoneb INHALATION 3 ml Q4H.RESPIRATORY S [facility] Administration Aspirin 325 mg 08/05/19 09:00 08/11/19 08:44 Aspirin PO 325 mg DAILY [facility] Administration Atorvastatin Calci um 40 mg 08/06/19 09:00 08/11/19 08:44 Lipitor PO 40 mg DAILY [facility] Administration Carvedilol 6.25 mg 08/05/19 09:00 08/05/19 18:09 Coreg PO 6.25 mg BID [facility] Administration Cyanocobalamin 500 mcg 08/05/19 09:00 08/10/19 08:43 Vitamin B-12 PO 500 mcg DAILY [facility] Administration Enoxaparin Sodium 80 mg 08/06/19 01:15 08/10/19 20:33 Lovenox SUBCUT Not Given Q12H [facility] Ferrous Sulfate 325 mg 08/05/19 09:00 08/11/19 08:44 Ferrous Sulfate PO 325 mg DAILY [facility] Administration Fluticasone Propio manjula 1 spray 08/07/19 13:10 08/11/19 08:43 Flonase NASAL 1 spray BID [facility] Administration Insulin Aspart 0 unit 08/05/19 08:00 08/11/19 08:43 Novolog SUBCUT 2 unit TIDWM [facility] Administration Protocol Losartan Potassium 50 mg 08/05/19 08:00 08/06/19 17:46 Cozaar PO Not Given BIDWM [facility] Metolazone 5 mg 08/05/19 09:00 08/05/19 09:37 Zaroxolyn PO 5 mg DAILY [facility] Administration Pantoprazole Sodiu m 40 mg 08/05/19 09:00 08/11/19 08:44 Protonix PO 40 mg DAILY [facility] Administration Spironolactone 12.5 mg 08/11/19 09:00 08/11/19 08:44 Aldactone PO 12.5 mg DAILY [facility] Administration Vitals/I&O/Wt Last Vital Signs Temp 98.5 F 08/11/19 18:00 Pulse 96 08/11/19 19:46 Resp 14 08/11/19 19:42 BP 131/81 08/11/19 18:00 Pulse Ox 92 08/11/19 19:42 08/11/19 08/11/19 08/11/19 06:59 14:59 22:59 Intake Total 650 / 650 900 / 1550 Output Total 200 / 1325 450 / 450 Balance -200 / -425 650 / 650 450 / 1100 Physical Exam Narrative: EXAM NARRATIVE: GENERAL: Patient is alert, awake and oriented x3. NECK: No jugular vein distension. HEENT: No cyanosis. No icterus. No pallor. HEART: Regular S1 and S2. No murmur, rub or gallop. LUNGS: Mild crackle bilaterally. ABDOMEN: Soft, nontender and nondistended. Positive bowel sounds. No guarding, rebound or tenderness. CENTRAL NERVOUS SYSTEM: Grossly nonfocal. EXTREMITIES: Lower extremities 1+ edema bilaterally. Urinary Catheter Management^: Lanza: Cath Placed During This Visit: yes Urethral Indwelling: Yes Reason for Continuing Indwelling Catheter: Accurate Measurement of Urinary Output in Critically Ill Patients Urinary Catheter Date of Insertion: 08/06/19 Urinary Catheter Time of Insertion: 02:41 Data : 08/11/19 04:55 08/09/19 04:55 A&P Assessment and plan (1) Abdominal distention: Continue to improve.Status post decided Secondary to possible right-sided heart failure/pulmonary hypertension and severe tricuspid valve regurgitation. Status: Acute Code(s): R14.0 - Abdominal distension (gaseous) (2) Hypotension: Improved. Add by mouth Lasix Status: Acute Code(s): I95.9 - Hypotension, unspecified (3) Pulmonary hypertension: Once blood pressure is stable I will add isosorbide mononitrate or sildenafil Status: Acute Code(s): I27.20 - Pulmonary hypertension, unspecified (4) NSTEMI (non-ST elevated myocardial infarction): Type II. Stable Status: Acute Code(s): I21.4 - Non-ST elevation (NSTEMI) myocardial infarction Attestations Medical Necessity Statement*: Patient regarding continuation hospitalization. He will be going to long-term Coding Level of Care Code Established Pt Acute Security Project Manager for [facility] Fwd Patient Type Established History Expanded Problem Focused Exam Expanded Problem Focused Medical Decision Making Moderate Complexity Diagnoses Abdominal distention R14.0 Hypotension I95.9 Pulmonary hypertension I27.20 NSTEMI (non-ST elevated myocardial infarction) I21.4
--- NOTE | 2019-08-11 22:07 | USCV_ITS ---
Benjamin Dimitri Age: 83 Gender: M : 1935 Exam Date: 08/11/2019 06:16 Ordering Phys: Pricilla Yip MD Technologist: Umm Carias Exam Location: [facility] [place]_ Indication: IV INFILTRATION LEFT ARM. INDURATED AND RED. HISTORY: Upper extremity pain. PROCEDURES: 2-D, Doppler and augmentation imaging is submitted of the left upper extremity venous system extending from the left jugular vein through the radial and ulnar veins. The cephalic vein is also included.. FINDINGS: SVT noted in the basilic vein of LEFT upper extremity. Basilic vein thrombus is contained in the AC space. All other veins appear free of thrombus at this time. No abscess visualized in the area of concern at this time. CONCLUSIONS No left upper extremity DVT. Superficial thrombophlebitis is detected in the left basilic at antecubital fossa. Dr. Jolynn Hcek DO (Electronically Signed) Final Date: 11 August 2019 08:10 S
[2019-08-12] VITALS (13 sets, daily range): BP systolic 98–146; BP diastolic 64–99; PULSE 69–99; RESP 14–20; TEMP 36.2–36.7; O2SAT 91–99
[2019-08-12] MEDS: ipratropium-albuterol 3 mL Neb INHALATION ×3 (03:12→11:11)
[2019-08-12 05:40] LABS: Glucose Point of Care 148 mg/dL (70-110)
[2019-08-12 05:40] LABS: Glucose Point of Care 149 mg/dL (70-110)
--- NOTE | 2019-08-12 06:51 | PC.NURSE ---
SHIFT SUMMARY PT HAS REMAINED ALERT AND ORIENTATED. PT LUNGS REMAIN DIMINISHED. PT REQUEST NO IV BE PLACED AT THIS TIME UNTIL HE KNOWS HE IS STAYING. PT HAS BEEN ABLE TO USE URINAL. PT ABLE TO GET UP TO CHAIR WITH MINIMAL ASSISTANCE. PT HAS BEEN RUNNING AFIB.
[2019-08-12 08:32] LABS: Glucose Point of Care 138 mg/dL (70-110)
[2019-08-12] MEDS: carvedilol 6.25 mg Tablet PO (08:48)
[2019-08-12] MEDS: atorvastatin 40 mg Tablet PO (08:48)
[2019-08-12] MEDS: FUROsemide 20 mg Tablet PO (08:48)
[2019-08-12] MEDS: aspirin 325 mg Tablet PO (08:48)
[2019-08-12] MEDS: cyanocobalamin 1,000 mcg Tablet 500 MCG PO (08:48)
[2019-08-12] MEDS: ferrous sulfate EC 325 mg Tablet PO (08:49)
[2019-08-12] MEDS: duloxetine 20 mg Capsule PO (08:49)
[2019-08-12] MEDS: pantoprazole DR 40 mg Tablet PO (08:49)
[2019-08-12] MEDS: isosorbide mononitrate ER 30 mg Tablet PO (08:49)
[2019-08-12] MEDS: pregabalin 75 mg Capsule PO (08:50)
[2019-08-12] MEDS: spironolactone 25 mg Tablet 12.5 MG PO (08:50)
[2019-08-12] MEDS: fluticasone nasal spray 16gm Btl 1 SPRAY NASAL (08:58)
--- NOTE | 2019-08-12 09:23 | PC.SOCIAL ---
IM update given today day 7. pt verbalized understanding and had no questions.
--- NOTE | 2019-08-12 09:28 | PC.CHAP ---
Pastoral Care Encounter/Spiritual Assessment Type of Contact [] Declined property accountant visit [] Patient/Family/Request visit [] Outpatient visit [] Follow-up visit [] Physician referral [] Code/Alert [x] Routine visit [] Staff referral [] Actively dying [] Patient sleeping [] Family support [] [] Out of room [] Palliative care [] [] Receiving care in room [] Pre-surgical visit [] Trauma [] Long length of stay [x] ICU visit [] Other: Relational/Emotional Strength [] Patient feels connected with others/family/visitors/staff [] Distress [] Loneliness/isolation [] Abandonment Spirituality of Patient [x] Person of Kathleen [] Attends Protestant of their Kathleen [x] Believes in Prayer [] Reads Bible or Rastafarian materials [] There are Spiritual issues to be addressed Sales Enablement Lead Interventions [x] Prayer [] Active listening [] Non-anxious presence [] Spiritual/emotional support [] Crisis/trauma care [] Spiritual counseling [] Bereavement support [] Provided bereavement packet [] Provided Bible/devotional materials [] Provided toy/stuffed animal, coloring book to patient or family member [] Provided Communion [] Anointing/[place] [] Salvation [x] Completed spiritual assessment [] Other: Impact on Illness or Injury [] Angry [] Fearful [] Anxious [] Often cries [] Exhaustion [] Unable to work [] Unable to attend islam [] Unable to walk/stand [] Unable to read [] Unable to drive [] Unable to eat/drink [] Unable to sleep [] Unable to be with family [] Patient intubated [] Other: Summary patient having breakfast. Good outlook on life. Time spent with patient 10min
--- NOTE | 2019-08-12 09:33 | PC.NURSE ---
Patient without IV, Dr. Wu notified. Orders received from Dr. Wu to leave IV out.
--- NOTE | 2019-08-12 09:40 | PM.DCS ---
Discharge Providers Date of Admission: 08/05/19 00:53 Date of Discharge: August 12, 2019 Attending Provider at Admission: Brandyn Beatty MD Attending Provider at Discharge: Jazmin Johnson MD Primary Care Provider: Lee Chávez DO Diagnoses at Discharge Discharge Diagnosis (1) NSTEMI (non-ST elevated myocardial infarction): Status: Acute Problem details: -medical management with ASA, Plavix, statin, BB -cardiology on board (2) Pulmonary hypertension: Status: Acute Problem details: -moderate pulmonary HTN -started on Imdur (3) Abdominal distention: Status: Resolved Problem details: -Liver cirrhosis with moderate ascites on abdomen US; paracentesis done for therapeutic and diagnostic purposes; removal of 4.5 L with noted symptomatic improvement. 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 Patient may be started on Sildenafil once BP improves -CXR-small L pleural effusion, CTA negative for PE, showing evidence of L pleural effusion, possible pulmonary HTN -supplemental oxygen as needed; monitor respiratory status. 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 Huff -Eriberto carotid stenosis s/p CEA with angioplasty -Hyperlipidemia -Left upper extremity superficial thrombophlebitis involving the left basilic vein; previous area of IV access now discontinued; no DVT per venous duplex. Left upper extremity elevation, warm compresses as tolerated Reason for Visit Reason for Visit: Reason For Visit: SOB Hospital Course Hospital Course: Patient was initially admitted to the cardiac stepdown unit and started on IV diuresis secondary to decompensated CHF. Unfortunately overnight he decompensated and a rapid response was called due to altered mental status and hypotension. He was moved to ICU and cardiology consulted. He was found to have elevated troponins likely type II NSTEMI and was started on medical management including therapeutic Lovenox, aspirin, statin, Plavix. He did require some pressor support due to noted continued hypotension. He was also noted to have significant abdominal distention, and on ultrasound was noted to have moderate ascites. He had a paracentesis done with removal of 4.5 L. Fluid analysis was not significant for SBP. He had symptomatic improvement following the paracentesis. He was gradually weaned off pressor support. Secondary to his other comorbidities including moderate pulmonary hypertension and noted drop in his ejection fraction, patient opted for medical management. With time and while off pressor support he is antihypertensives were gradually resumed and we were able to add Imdur due to his pulmonary hypertension. He has worked well with physical therapy and remains motivated to get stronger. He did require Lanza catheter placement when he decompensated, this is since been discontinued. While on therapeutic Lovenox he was noted to have oozing from his Lanza catheter insertion site as well as the puncture site for the paracentesis. Lovenox was held and bleeding has since resolved. He has been able to void independently following removal of Lanza catheter with no noted hematuria. He is agreeable to SNF placement and will be discharged to [facility] later this afternoon. Unfortunately during the course of his hospital stay he developed infiltration from a previous IV site on the left upper extremity that was used for infusion of his pressor support. Venous duplex was done which ruled out DVT though he was found to have superficial thrombophlebitis. With elevation and warm compresses this is gradually improving. He has been oxygen dependent throughout his hospital stay and will need to continue using 2 L with appropriate titration to maintain his saturation at or above 92% or for symptomatic management. Discharge Summary: -Patient to follow-up with his primary care physician within 1 week or prior SNF -Patient to follow-up with Dr. Huff in 2 to 3 weeks Physical Exam Const: COMMON NORMALS: no apparent distress and oriented x3 GENERAL APPEARANCE: cooperative, comfortable and frail appearing ORIENTATION/CONSCIOUSNESS: Yes awake HENMT: COMMON NORMALS: normocephalic, head/scalp atraumatic, hearing grossly normal bilaterally and moist oral mucous membranes HEAD & SCALP: normocephalic and atraumatic Eye: COMMON NORMALS: PERRL, EOMs intact bilaterally and conjunctivae normal CONJUNCTIVA: Yes conjunctivae normal PUPIL: Yes PERRL Neck/C-Spine: COMMON NORMALS: full ROM GENERAL: Yes normal visual inspection and Yes trachea midline Resp: COMMON NORMALS: normal respiratory effort, no retractions, no use of accessory muscles and clear to auscultation bilaterally EFFORT & INSPECTION: Yes able to speak in complete sentences, Yes symmetric chest movement and No tachypneic AUSCULTATION: clear to auscultation bilaterally OTHER: -on 2 L NC Cardio: COMMON NORMALS: regular rate, regular rhythm, S1 normal heart sound and S2 normal heart sound RATE: regular rate RHYTHM: regular rhythm HEART SOUNDS: S1 normal, S2 normal and murmur systolic GI: COMMON NORMALS: soft to palpation and non-tender INSPECTION: Yes abdominal distension AUSCULTATION: Yes normoactive bowel sounds PALPATION: Yes soft : BLADDER/KIDNEY EXAM: No catheter in place Back/Pelvis: COMMON NORMALS: thoracic and lumbar spine normal to inspection Extremity: COMMON NORMALS: normal to inspection, full ROM and no clubbing, cyanosis or edema; negative for no pedal edema OTHER: -noted LUE induration at AC fossa secondary to infiltration, small puncture site with some oozing noted; non-pitting edema Neuro: COMMON NORMALS: oriented x3, moves all extremities, no focal motor deficits and no sensory deficits noted Psych: COMMON NORMALS: mental status grossly normal, thought process normal, cooperative, affect normal and speech normal SPEECH: Yes normal speech THOUGHT PROCESS: normal thought process Skin: COMMON NORMALS: no rashes or lesions noted, no jaundice, no petechiae and no mottling GENERAL SKIN EXAM: no rashes or lesions noted Urinary Catheter Management^: Lanza: Cath Placed During This Visit: yes Urethral Indwelling: Yes Reason for Continuing Indwelling Catheter: Accurate Measurement of Urinary Output in Critically Ill Patients Urinary Catheter Date of Insertion: 08/06/19 Urinary Catheter Time of Insertion: 02:41 Discharge Data Data Completed and Pending: Completed Studies During Hospitalization Category Date Time Status CT angio chest PE protcl [id number] Urge nt Cat Scan 08/05/19 00:48 Completed XR chest 1V ronda ble [id number] Stat Exams 08/05/19 20:54 Completed XR chest 1V ronda ble [id number] Urgent Exams 08/04/19 21:39 Completed XR lumbar spine 2 -3V* [id number] Urgent Exams 08/04/19 Completed CV echo complete* [id number] Urgent Ultrasound 08/05/19 02:12 [place] [id number] Routin e Ultrasound 08/11/19 22:07 Completed [place] abdomen limite d [id number] Routine Ultrasound 08/06/19 22:27 [place] bd w [id number] Routine Ultrasound 08/06/19 10:28 Completed Labs from last 24 hours 08/12/19 08/11/19 08/11/19 08:28 23:27 17:29 POC Glucose 138 148 149 08/11/19 08/11/19 08/10/19 11:28 07:50 11:29 POC Glucose 174 149 195 08/09/19 17:36 POC Glucose 141 Vitals: Last Vital Signs Temp 98.1 F 08/12/19 02:19 Pulse 81 08/12/19 08:17 Resp 16 08/12/19 08:17 BP 119/73 08/12/19 08:00 Pulse Ox 98 08/12/19 08:17 Discharge Plan Discharge Patient Disposition: Xfer SNF Condition: Stable Prescriptions: New isosorbide mononitrate 30 mg Tablet Extended Release 24 Hr 30 mg PO DAILY 30 Days Qty: 30 RF: 0 Vitamin B-12 1,000 mcg Tablet 500 mcg PO DAILY 30 Days Qty: 30 RF: 0 spironolactone 25 mg Tablet 12.5 mg PO DAILY 30 Days Qty: 30 RF: 0 ferrous sulfate 325 mg (65 mg iron) Tablet,Delayed Release (Dr/Ec) 325 mg PO DAILY 30 Days Qty: 30 RF: 0 Continued hydrocodone-acetaminophen 5-325 mg Tablet 1 tab PO Q6H PRN (Reason: Pain, Moderate) Qty: 30 RF: 0 clopidogrel 75 mg Tablet 75 mg PO DAILY 30 Days Qty: 30 RF: 0 aspirin 325 mg Tablet,Delayed Release (Dr/Ec) 325 mg PO DAILY 30 Days Qty: 30 RF: 0 omeprazole 20 mg Capsule,Delayed Release(Dr/Ec) 20 mg PO DAILY 30 Days Qty: 30 RF: 0 loratadine 10 mg Tablet 10 mg PO DAILY 30 Days Qty: 30 RF: 0 glipizide 5 mg Tablet 5 mg PO DAILY 30 Days Qty: 30 RF: 0 duloxetine 20 mg Capsule,Delayed Release(Dr/Ec) 20 mg PO BID 30 Days Qty: 60 RF: 0 Lyrica 75 mg Capsule 75 mg PO BID 30 Days Qty: 60 RF: 0 Changed cyclobenzaprine 10 mg Tablet 10 mg PO TID PRN (Reason: Muscle Spasm) Qty: 30 RF: 0 furosemide 40 mg Tablet 20 mg PO DAILY 30 Days Qty: 30 RF: 0 atorvastatin 20 mg Tablet 40 mg PO BEDTIME 30 Days Qty: 60 RF: 0 carvedilol 12.5 mg Tablet 6.25 mg PO BID 30 Days Qty: 30 RF: 0 Discontinued metolazone 2.5 mg Tablet 2.5 mg PO DAILY RF: 0 metaxalone 800 mg Tablet 800 mg PO QID RF: 0 Discharge Orders: Discharge Order (Routine); Ordered 08/12/19 Ordered By: Jazmin Johnson Other Ambulatory Orders: DME: Oxygen (Order) Location: None Selected Ordered By: Jazmin Johnson Referrals: [facility] [place] [Outside] Shay Huff MD [Physician] - 2 weeks (post-hospital follow up) Lee Chávez DO [Primary Care Provider] - 4-7 days (Post-hospital discharge) Discharge Diet: Cardiac Discharge Activity: Increase activity as tolerated Activity Restrictions/Additional Instructions: -Patient has been oxygen dependent, on 2 L nasal cannula which can be titrated to maintain his saturation at or above 92% or for symptomatic management Discharge Date/Time: 08/12/19 13:00 Discharge Attestations Time Spent in Discharge Care*: greater than 30 min Specific Discharge Activities: Specific discharge activities: educating patient, educating and/or supporting family/caregiver, discussing with pcp/other providers, discussing with director of casework/social workers/dc planners, documenting/other paperwork and evaluating patient/reviewing data Status at Discharge: Cognitive status at discharge: cognitively intact, Behavioral status at discharge: cooperative, Functional status at discharge: uses cane/walker Overall status at discharge: patient is back to baseline Quality Metrics Clinical Quality Measures During this hospital stay, did patient experience: AMI Clinical Trial Participant: No Contraindication to aspirin (AMI): Aspirin given Contraindication to statin: Statin prescribed Coding Level of Care Code Acute Materials Scheduler for Chg Fwd Exam Comprehensive Diagnoses NSTEMI (non-ST elevated myocardial infarction) I21.4 Pulmonary hypertension I27.20 Abdominal distention R14.0 Hypotension I95.9 Hypotension type: unspecified hypotension type Acute respiratory failure with hypoxia J96.01 Frequent falls R29.6
--- NOTE | 2019-08-12 10:34 | PC.PT ---
Patient is d/c to half-way.
--- NOTE | 2019-08-12 11:12 | PM.PN ---
Subjective Subjective: Interval history: Mr. Alexander was admitted a week ago on the eighth with respiratory failure. He had a small non-ST segment elevation TX. He has an ejection fraction of 20% by echo with wall motion disturbances. His pulmonary artery pressures in the 50s. He has a longstanding history of coronary disease and has had bypass surgery twice. He is known to have a very low ejection fraction in the past. He also has a multitude of other issues including carotid stenosis, atrial fibrillation, hypertension, dyslipidemia and diabetes. There is mention in the chart of a AAA. He has been weak and falling at home. He lives alone. He is scheduled to go [place] [facility] today. Medications: Reviewed: Yes Vitals/I&O/Wt Last Vital Signs Temp 97.1 F L 08/12/19 10:37 Pulse 81 08/12/19 10:37 Resp 20 H 08/12/19 10:37 BP 111/67 08/12/19 10:37 Pulse Ox 97 08/12/19 10:37 08/11/19 08/12/19 08/12/19 22:59 06:59 14:59 Intake Total 900 / 1550 200 / 200 Output Total 450 / 450 100 / 550 75 / 75 Balance 450 / 1100 -100 / 1000 125 / 125 Physical Exam Narrative: EXAM NARRATIVE: GENERAL: In general he is comfortable without shortness of breath at rest HEENT: Exam within normal limits. NECK: Supple without jugular vein distention. The carotid upstroke is normal without bruits. BACK: Exam normal. LUNGS: Clear. HEART: Regular rate and rhythm. ABDOMEN: Benign without organomegaly or tenderness. Evidence of mild ascites EXTREMITIES: No edema. NEUROLOGIC: Exam normal. SKIN: Unremarkable. Urinary Catheter Management^: Lanza: Cath Placed During This Visit: yes Urethral Indwelling: Yes Reason for Continuing Indwelling Catheter: Accurate Measurement of Urinary Output in Critically Ill Patients Urinary Catheter Date of Insertion: 08/06/19 Urinary Catheter Time of Insertion: 02:41 Data : 08/11/19 04:55 08/09/19 04:55 A&P Assessment and plan (1) NSTEMI (non-ST elevated myocardial infarction): Status: Acute Code(s): I21.4 - Non-ST elevation (NSTEMI) myocardial infarction (2) Type 2 diabetes mellitus: Status: Acute Code(s): E11.9 - Type 2 diabetes mellitus without complications (3) Pulmonary hypertension: Status: Acute Code(s): I27.20 - Pulmonary hypertension, unspecified (4) Abdominal distention: Status: Resolved Code(s): R14.0 - Abdominal distension (gaseous) (5) Atrial fibrillation: Status: Acute Qualifiers: Atrial fibrillation type: other persistent Qualified Code(s): I48.19 - Other persistent atrial fibrillation Code(s): I48.91 - Unspecified atrial fibrillation (6) Acute respiratory failure with hypoxia: Status: Acute Code(s): J96.01 - Acute respiratory failure with hypoxia (7) Hyperlipidemia: Status: Acute Code(s): E78.5 - Hyperlipidemia, unspecified (8) Hypertension: Status: Acute Code(s): I10 - Essential (primary) hypertension (9) Ischemic cardiomyopathy: Status: Acute Code(s): I25.5 - Ischemic cardiomyopathy (10) CAD (coronary artery disease): Status: Acute Code(s): I25.10 - Atherosclerotic heart disease of [place] coronary artery without angina pectoris Additional A&P Information Okay to discharge to the [place] [facility]. Medications as seem appropriate to include aspirin, carvedilol, losartan, statin, isosorbide, Aldactone and Lasix. Follow-up as indicated. Attestations Medical Necessity Statement*: Not applicable Coding Level of Care Code Acute Tower Operator for Genig Fwd History Detailed Medical Decision Making Moderate Complexity Diagnoses NSTEMI (non-ST elevated myocardial infarction) I21.4 Type 2 diabetes mellitus E11.9 Pulmonary hypertension I27.20 Abdominal distention R14.0 Atrial fibrillation I48.19 Atrial fibrillation type: other persistent Acute respiratory failure with hypoxia J96.01 Hyperlipidemia E78.5 Hypertension I10 Ischemic cardiomyopathy I25.5 CAD (coronary artery disease) I25.10 Time Spent (min) 38
--- NOTE | 2019-08-12 13:13 | PC.NURSE ---
Transport services picked patient up and escorted out of unit by wheelchair. Patients clothes put on, belongings with patient. Belongings include candy, phone director private music therapy agency, and walker.
== END 2019-08-12 13:00 | disposition skilled nursing facility (03) | DRG 280 ==
LOC: ER 21:24 → CSU 08-05 01:14 → ICU 08-05 21:37
PROVIDERS: Hospitalist; Admitting Provider Family Medicine; Emergency Provider Emergency Medicine; Family Provider Emergency Medicine Emergency Medical Services; PCP Emergency Medicine Emergency Medical Services; Visit Provider Family Medicine
DX: I11.0 Hypertensive heart disease with heart failure (principal); J96.01 Acute respiratory failure with hypoxia; I21.A1 Myocardial infarction type 2; I50.21 Acute systolic (congestive) heart failure; I48.19 Other persistent atrial fibrillation; R18.8 Other ascites; T80.1XXA Vascular complications following infusion, transfusion and therapeutic injection, initial encounter; I25.10 Atherosclerotic heart disease of native coronary artery without angina pectoris; I25.5 Ischemic cardiomyopathy; K74.60 Unspecified cirrhosis of liver; I27.20 Pulmonary hypertension, unspecified; I95.9 Hypotension, unspecified; E11.9 Type 2 diabetes mellitus without complications; I80.8 Phlebitis and thrombophlebitis of other sites; I08.1 Rheumatic disorders of both mitral and tricuspid valves; Y84.8 Other medical procedures as the cause of abnormal reaction of the patient, or of later complication, without mention of misadventure at the time of the procedure; E78.5 Hyperlipidemia, unspecified; G62.89 Other specified polyneuropathies; Z79.82 Long term (current) use of aspirin; Z79.01 Long term (current) use of anticoagulants; Z95.5 Presence of coronary angioplasty implant and graft; Z95.1 Presence of aortocoronary bypass graft
CPT/HCPCS: 12345; 36415; 36416; 36600; 49083; 51702; 71045; 71275; 72100; 76705; 80048; 80051; 80053; 80061; 80500; 82805; 82810; 82945; 82962; 83036; 83605; 83615; 83735; 83880; 83986; 84100; 84315; 84443; 84484; 85025; 85610; 87040; 87070; 87075; 87205; 87804; 89050; 93005; 93306; 93971; 94640; 94664; 96372; 96375; 97110; 97116; 97162; 97165; 97530; 97535; 99283; J1650; J1815; J1940; J2270; J3480; J3490; J7040; Q9967